=== PATIENT | male | born 1950 | race Caucasian/White ===

== ENCOUNTER → 2019-07-08 11:10 | Outpatient (BNVA) | payer MEDICARE, BC, SELFPAY | PROVIDERS: Family Provider Nurse Practitioner Family; PCP Family Medicine; Visit Provider Family Medicine | DX: I10 Essential (primary) hypertension (principal); E78.5 Hyperlipidemia, unspecified; Z12.5 Encounter for screening for malignant neoplasm of prostate; E78.2 Mixed hyperlipidemia | CPT/HCPCS: 80053; 80061; 85025; G0103 ==

== ENCOUNTER → 2020-01-05 08:57 | Outpatient (BNVA) | payer MEDICARE, BC, SELFPAY | PROVIDERS: Family Provider Nurse Practitioner Family; PCP Family Medicine; Visit Provider Family Medicine | DX: E11.9 Type 2 diabetes mellitus without complications (principal); I10 Essential (primary) hypertension; E78.2 Mixed hyperlipidemia | CPT/HCPCS: 80053; 80061; 83036; 85025 ==

== ENCOUNTER → 2020-06-29 11:31 | Outpatient (BNVA) | payer MEDICARE, BC, SELFPAY | PROVIDERS: Family Provider Nurse Practitioner Family; PCP Family Medicine; Visit Provider Family Medicine | DX: R60.9 Edema, unspecified (principal); I10 Essential (primary) hypertension; E11.9 Type 2 diabetes mellitus without complications; E78.2 Mixed hyperlipidemia | CPT/HCPCS: 80053; 80061; 83036; 84443; 85025 ==

== ENCOUNTER → 2020-12-29 11:15 | Outpatient (BNVA) | payer MEDICARE, BC, SELFPAY | PROVIDERS: Family Provider Nurse Practitioner Family; PCP Family Medicine; Visit Provider Family Medicine | DX: E11.9 Type 2 diabetes mellitus without complications (principal); I10 Essential (primary) hypertension; E78.2 Mixed hyperlipidemia; R60.9 Edema, unspecified | CPT/HCPCS: 80053; 80061; 83036; 84443 ==

== ENCOUNTER → 2021-01-11 10:14 | Outpatient (BNVA) | payer MEDICARE, BC, SELFPAY | PROVIDERS: Family Provider Nurse Practitioner Family; PCP Family Medicine; Visit Provider Family Medicine | DX: R79.89 Other specified abnormal findings of blood chemistry (principal) | CPT/HCPCS: 84439; 84443; 84481 ==

== ENCOUNTER → 2021-06-23 12:13 | Outpatient (BNVA) | payer MEDICARE, BC, SELFPAY | PROVIDERS: Family Provider Nurse Practitioner Family; PCP Family Medicine; Visit Provider Family Medicine | DX: E78.2 Mixed hyperlipidemia (principal); I10 Essential (primary) hypertension; E11.9 Type 2 diabetes mellitus without complications; R53.83 Other fatigue; M79.10 Myalgia, unspecified site; Z12.5 Encounter for screening for malignant neoplasm of prostate; R06.02 Shortness of breath; R60.9 Edema, unspecified | CPT/HCPCS: 71046; 80053; 80061; 82306; 82607; 83036; 83880; 84403; 84443; 85025; G0103 ==

== ENCOUNTER → 2021-07-10 17:22 | Outpatient (BNVA) | payer MEDICARE, BC, SELFPAY | PROVIDERS: Family Provider Nurse Practitioner Family; PCP Family Medicine; Visit Provider Family Medicine | DX: R60.9 Edema, unspecified (principal); R06.02 Shortness of breath; I10 Essential (primary) hypertension | CPT/HCPCS: 80048 ==

== ENCOUNTER 2021-07-14 13:14 | Outpatient (CLI) | payer MEDICARE, BC, SELFPAY ==
--- NOTE | 2021-07-14 13:30 | USCV_ITS ---
David Paredes Age: 71 Gender: M : 1950 Exam Date: 07/14/2021 13:33 Ordering Phys: Yelena Lopez MD Technologist: Gretchen Guadarrama Exam Location: [facility] [place] Indication: SHORTNESS OF BREATH BP: 142 / 69 HR: 59 Rhythm: Sinus Technical Quality: Adequate MEASUREMENTS (Male / Female) Normal Values 2D ECHO LV Diastolic Diameter PLAX 6.0 cm 4.2 - 5.9 / 3.9 - 5.3 cm LV Systolic Diameter PLAX 3.6 cm LV Chamber Size 3.5 cm IVS Diastolic Thickness 0.9 cm 0.6 - 1.0 / 0.6 - 0.9 cm IVS Systolic Thickness 1.8 cm LVPW Diastolic Thickness 1.4 cm 0.6 - 1.0 / 0.6 - 0.9 cm LVPW Systolic Thickness 1.7 cm RV Chamber Size 2.9 cm LVOT Diameter 2.1 cm LV Ejection Fraction 2D Teich 69.8 % LV Ejection Fraction MOD 2C 66.0 % LV Ejection Fraction 2C AL 66.3 % LA Diameter 4.3 cm LA Width 3.3 cm LA Height 3.7 cm RA Width 2.7 cm RA Height 4.1 cm Aorta at Sinotubular Diameter 2.6 cm IVC Diameter 2.1 cm M-MODE Aortic Annulus Diameter 3.6 cm LA Ao Ratio MM 1.3 MV E Point Septal Separation 0.8 cm DOPPLER AV Peak Velocity 140.0 cm/s LVOT Peak Velocity 95.0 cm/s AV Area Cont Eq vti 2.0 cm squared AV Area Cont Eq pk 2.3 cm squared MV Area PHT 3.9 cm squared Mitral E to A Ratio 0.9 MV E' Velocity 40.5 cm/s Mitral E to MV E' Ratio 8.0 Mitral E to LV E' Lateral Ratio 10.9 Mitral E to LV E' Septal Ratio 6.3 TR Peak Velocity 289.6 cm/s TR Peak Gradient 33.5 mmHg TR Mean Velocity 237.0 cm/s TR Mean Gradient 23.7 mmHg TR Velocity Time Integral 102.7 cm TV Peak E Velocity 63.0 cm/s Right Atrial Pressure 3.0 mmHg Pulmonary Artery Systolic Pressu 36.5 mmHg PV Peak Velocity 75.0 cm/s RV Acceleration Time 0.1 s RV Ejection Time 0.3 s RV AcT/ET 0.3 FINDINGS Left Ventricle Normal left ventricular size and systolic function, EF 60 %. No regional wall motion abnormalities. Grade I/IV diastolic dysfunction (abnormal relaxation filling pattern), normal to mildly elevated filling pressures. Right Ventricle The right ventricle is normal in size and function. Right Atrium The right atrium is normal in size. Left Atrium The left atrium is normal in size. Mitral Valve Thickened mitral valve. Mild mitral annular calcification. Trace mitral valve regurgitation. Aortic Valve Thickened aortic valve. Tricuspid Valve No gross abnormalities. Pulmonic Valve No gross abnormalities noted Pericardium Normal pericardium without effusion. Aorta Normal ascending aorta dimension. IVC The inferior vena cava pulmonary and hepatic veins appear normal. CONCLUSIONS Normal left ventricular size and systolic function, EF 60 %. No regional wall motion abnormalities. Type I diastolic dysfunction. Thickened mitral valve. Mild mitral annular calcification. Trace mitral valve regurgitation. There is no pericardial effusion. There are no intracardiac masses. No similar previous studies are available for comparison Dr Tommy Renteria MD [facility] (Electronically Signed) Final Date: 14 Jul 2021 17:14 S
== END 2021-07-14 13:15 | disposition home or self-care (01) ==
LOC: RAD 13:17
PROVIDERS: Family Provider Nurse Practitioner Family; PCP Family Medicine; Visit Provider Family Medicine
DX: R06.02 Shortness of breath (principal)
CPT/HCPCS: 93306

== ENCOUNTER 2021-09-26 07:52 | Outpatient (CLI) | payer MEDICARE, BC, SELFPAY ==
--- NOTE | 2021-09-26 13:29 | PFTS_ITS ---
Date of Study:09/26/21 Date of Dictation: MECHANICS: Forced vital capacity (FVC) is normal. Forced expiratory volume in one second (FEV1) is normal. FEV1/FVC is normal. FLOW VOLUME LOOP: Normal. LUNG VOLUMES: Not measured DIFFUSING CAPACITY FOR CARBON MONOXIDE: Not measured. INTERPRETATION: The prebronchodilator spirometry is normal. No postbronchodilator spirometry was obtained. MTDD
== END 2021-09-26 07:53 | disposition home or self-care (01) ==
PROVIDERS: PCP Family Medicine; Visit Provider Family Medicine
DX: R06.02 Shortness of breath (principal)
CPT/HCPCS: 94010

== ENCOUNTER 2021-11-20 18:43 | Inpatient (IN) | payer MEDICARE, BC, SELFPAY ==
[2021-11-20] VITALS (9 sets, daily range): BP systolic 122–159; BP diastolic 46–67; PULSE 75–85; RESP 16–18; TEMP 36.7–37.2; O2SAT 94–97; BMI 28.5
--- NOTE | 2021-11-20 19:24 | ED_ITS ---
HPI - General Adult General: Chief complaint: General Medical Stated complaint: PCP sent for blood transfusion Time Seen by Provider: 11/20/21 19:15 History of Present Illness: Patient is a 71-year-old male with history hypertension chronically on 81 mg of aspirin presenting to the emergency room with concerns of dark stool for the last 2 weeks in the setting of lightheadedness, shortness of breath and low hemoglobin. Patient went to see his primary care doctor earlier today and was found to have a hemoglobin of 7. Patient was then told to come to the emergency room for concerns of melena. Patient tells me he has had black stool for the last 2 weeks. Patient denies any anticoagulation, liver history or midepigastric abdominal pain. Patient denies any hemoptysis, hematemesis or hematuria. Patient denies any hematochezia. Patient has no other focal complaints at this time. Patient is compliant with 81 mg of aspirin daily. Patient tells me that his stool is improving for the last 2 days has not seen any dark stool. Onset:2 weeks ago Duration:2 weeks Location:home Severity:moderate Associated symptoms: Deny chest pain, dyspnea, nausea, rash, palpitations or vomiting Review of Systems Const: Denies: fever(s) or chills Eyes: Denies: change in vision ENMT: Denies: mouth pain Card: Denies: chest pain or palpitations Resp: Denies: dyspnea or non-productive cough GI: Reports: other (+dark stool); Denies: abdominal pain, nausea, vomiting or diarrhea : Denies: dysuria Musc: Denies: extremity pain Skin/Breast: Denies: rash or new lesions Neuro: Denies: weakness in extremities Psych: Reports: other (Normal mood) Lul/Lymph: Denies: easy bruising PFS ED PFSH: Medical History Hyperlipidemia Hypertension Social History Smoking and tobacco status: never smoked Second hand smoke exposure: No Alcohol intake: never Adopted: No Caregiver/support person: Yes (spouse) Lives independently: Yes Household members: spouse Marital status: Current occupational status: retired History of recent travel: No Current gender identity: Male Special gurpreet needs: No Physical Exam Const: COMMON NORMALS: alert HENMT: COMMON NORMALS: atraumatic HEAD & SCALP: atraumatic MOUTH: moist mucous membranes not abnormal Eye: COMMON NORMALS: EOMs intact bilaterally and conjunctivae normal CONJUNCTIVA: Yes conjunctivae normal Neck/C-Spine: COMMON NORMALS: full ROM and supple Resp: COMMON NORMALS: normal respiratory effort and clear to auscultation bilaterally AUSCULTATION: clear to auscultation bilaterally Cardio: COMMON NORMALS: regular rate RATE: regular rate GI: COMMON NORMALS: Soft to palpation and non-tender PALPATION: Yes Soft to palpation OTHER: No focal TTP. NO guarding rebound, guarding, rigidity. No CVA tenderness to per cussion. Neg Miles/Neg McBurney's point tenderness, no suprabupic tenderness to palpation. RECTAL: hemoocult positive brown stool Extremity: COMMON NORMALS: full ROM Neuro: SENSORIUM/ORIENTATION: Yes alert MOTOR EXAM: No Abnormal motor strength present and Other motor observations present (no focal motor deficits) Psych: COMMON NORMALS: speech normal SPEECH: Yes normal speech MOOD & AFFECT: Yes euthymic mood Course Vital Signs: Vital signs: Vital Signs Temperature 98.1 F 11/20/21 22:40 Pulse Rate 75 11/20/21 22:40 Respiratory Rate 18 11/20/21 22:40 Blood Pressure 140/60 11/20/21 22:40 Pulse Oximetry 96 11/20/21 20:34 Oxygen Delivery Me thod 11/20/21 18:50 MDM - General Adult Medical Decision Making Patient is a 71-year-old male with history hypertension chronically on 81 mg of aspirin presenting to the emergency room with concerns of dark stool for the last 2 weeks in the setting of lightheadedness, shortness of breath and low hemoglobin. On physical exam, patient is no focal abdominal tenderness palpation. She is hemodynamically stable. Patient has Hemoccult positive brown stool. Patient is noted to have a hemoglobin of 6.7 today. Patient has been transfused 2 units of blood. Patient received IV Protonix. At the present time, patient continues to be hemodynamically stable. Suspect the patient has had a GI bleed. Case discussed with Dr. Mckeon who will take patient for EGD tomorrow. NPO at midnight Disposition: admission Lab Data : 11/20/21 19:20 11/20/21 19:20 Laboratory Results WBC 12.6 10^3/uL (4.0-10.0) H 11/20/21 19:20 RBC 2.62 10^6/uL (4.1-5.3) L 11/20/21 19:20 Hgb 6.7 g/dL (11.7-16.6) L 11/20/21 19:20 Hct 21.9 % (42.0-52.0) L 11/20/21 19:20 MCV 83.6 fl (80-94) 11/20/21 19:20 MCH 25.6 pg (28.0-34.0) L 11/20/21 19:20 MCHC 30.6 g/dL (30.0-36.0) 11/20/21 19:20 RDW 15.2 % (12.1-15.1) H 11/20/21 19:20 Plt Count 486 10^3/cmm (130-400) H 11/20/21 19:20 MPV 9.9 fL (7.4-10.4) 11/20/21 19:20 Neut % (Auto) 76.7 % 11/20/21 19:20 Lymph % (Auto) 9.3 % 11/20/21 19:20 Haralson % (Auto) 9.1 % 11/20/21 19:20 Eos % (Auto) 4.0 % 11/20/21 19:20 Baso % (Auto) 0.6 % 11/20/21 19:20 Neut # (Auto) 9.67 10^3/uL (1.8-7.7) H 11/20/21 19:20 Lymph # (Auto) 1.2 10^3/uL (0.8-4.8) 11/20/21 19:20 Haralson # (Auto) 1.1 10^3/uL (0.2-0.9) H 11/20/21 19:20 Eos # (Auto) 0.5 10^3/uL (0.0-0.8) 11/20/21 19:20 Baso # (Auto) 0.1 10^3/uL (0.0-0.1) 11/20/21 19:20 Nucleated RBC % (auto) 0 % 11/20/21 19:20 Nucleated RBCs # 0.0 /100WBC 11/20/21 19:20 PT 16.60 SECONDS (12.1-14.9) H 11/20/21 19:20 INR 1.31 (0.8-1.2) H 11/20/21 19:20 Sodium 130 mmol/L (136-145) L 11/20/21 19:20 Potassium 4.2 mmol/L (3.5-5.1) 11/20/21 19:20 Chloride 96 mmol/L (98-107) L 11/20/21 19:20 Carbon Dioxide 24 mmol/L (22-29) 11/20/21 19:20 Anion Gap 14.2 (5-19) 11/20/21 19:20 BUN 13 mg/dL (8-23) 11/20/21 19:20 Creatinine 0.7 mg/dL (0.7-1.2) 11/20/21 19:20 GFR Calculation Not Reportable 11/20/21 19:20 Glucose 152 mg/dL (65-115) H 11/20/21 19:20 Calculated Osmolality 273 mOsm/kg (285-295) L 11/20/21 19:20 Calcium 8.1 mg/dL (8.5-10.5) L 11/20/21 19:20 Total Bilirubin 0.4 mg/dL (0.15-1.2) 11/20/21 19:20 AST 20 U/L (0-40) 11/20/21 19:20 ALT 28 U/L (0-41) 11/20/21 19:20 Alkaline Phosphatase 206 U/L (40-130) H 11/20/21 19:20 Total Protein 6.9 g/dL (6.6-8.7) 11/20/21 19:20 Albumin 2.6 g/dL (3.5-5.2) L 11/20/21 19:20 Globulin 4.3 g/dL (1.3-4.6) 11/20/21 19:20 Blood Type A Negative 11/20/21 20:27 Rho(D) Type Negative 11/20/21 20:27 Antibody Screen Negative 11/20/21 20:27 Crossmatch See Detail 11/20/21 20:27 Discharge Plan Discharge Patient Disposition: Admitted As Inpatient Clinical Impression: Anemia, Melena, Acute GI bleeding Condition: Stable Discharge Diet: Advance as tolerated Discharge Activity: Increase activity as tolerated Coding Level of Care Code ED Polisher And Buffer for Chg Fwd Exam Comprehensive
[2021-11-20 19:30] LABS: Basophils # 0.1 10^3/uL (0.0-0.1); Basophils % 0.6 %; Eosinophils # 0.5 10^3/uL (0.0-0.8); Hematocrit 21.9 % (42.0-52.0); Hemoglobin 6.7 g/dL (11.7-16.6); Lymphocytes # 1.2 10^3/uL (0.8-4.8); Lymphocytes % 9.3 %; Mean Corpuscular HGB Conc 30.6 g/dL (30.0-36.0); Mean Corpuscular Hemoglobin 25.6 pg (28.0-34.0); Mean Corpuscular Volume 83.6 fl (80-94); Mean Platelet Volume 9.9 fL (7.4-10.4); Monocytes # 1.1 10^3/uL (0.2-0.9); Monocytes % 9.1 %; Neutrophils # 9.67 10^3/uL (1.8-7.7); Neutrophils % 76.7 %; Nucleated Red Blood Cells % 0 %; Platelet Count 486 10^3/cmm (130-400); Red Blood Count 2.62 10^6/uL (4.1-5.3); Red Cell Distribution Width 15.2 % (12.1-15.1); White Blood Count 12.6 10^3/uL (4.0-10.0)
[2021-11-20 19:43] LABS: INR 1.31 (0.8-1.2)
[2021-11-20 19:52] LABS: Alanine Aminotransferase 28 U/L (0-41); Albumin Level 2.6 g/dL (3.5-5.2); Alkaline Phosphatase 206 U/L (40-130); Anion Gap 14.2 (5-19); Aspartate Amino Transferase 20 U/L (0-40); Blood Urea Nitrogen 13 mg/dL (8-23); Calcium 8.1 mg/dL (8.5-10.5); Carbon Dioxide 24 mmol/L (22-29); Chloride 96 mmol/L (98-107); Globulin 4.3 g/dL (1.3-4.6); Glucose 152 mg/dL (65-115); Osmolality Calculated 273 mOsm/kg (285-295); Potassium 4.2 mmol/L (3.5-5.1); Sodium 130 mmol/L (136-145); Total Bilirubin 0.4 mg/dL (0.15-1.2); Total Protein 6.9 g/dL (6.6-8.7)
[2021-11-20] MEDS: pantoprazole 40 mg SDV 80 MG IVP (20:26)
[2021-11-20] MEDS: sodium chloride 0.9% 100 mL Bag 50 ML IV (22:10)
--- NOTE | 2021-11-20 23:24 | PM.HP ---
Providers/Chief Complaint Primary Care Provider: Yelena Lopez MD Chief Complaint: PCP sent for blood transfusion History of Present Illness David Paredes is a 71 year old male with past medical history of hypertension came in with chief complaint of ongoing dark stool for the last 2 weeks, accompanied with lightheadedness , shortness of breath. Patient has denied any chest pain, nausea vomiting abdominal pain, fever cough, denies any, hematuria hemoptysis, hematemesis, he is only on aspirin, not on any oral anticoagulation. Patient was seen by his primary care physician today, CBC done at that time revealed hemoglobin of 7, patient was sent to ER for further work-up. Upon arrival in the ER he was worked up for above-mentioned complaint: Pertinent labs: WBC 12.6, H&H 6.7/ 21 , PLT : 486 , serum sodium 130 serum potassium 4.2, BUN serum creatinine: 13/0.7 PT/INR: 16/1.3 Review of Systems General: Reports: 10 or more systems reviewed and unremarkable except in HPI and below Const: Denies: fever(s), chills, body aches, change in appetite or diaphoresis Card: Reports: dyspnea on exertion; Denies: palpitations, edema, swelling of feet/ankles or leg pain with exertion Resp: Reports: dyspnea; Denies: productive cough, wheezing or pain on inspiration GI: Denies: abdominal pain, nausea, vomiting, diarrhea or constipation : Denies: flank pain or difficulty urinating Musc: Denies: back pain, extremity pain or extremity swelling Neuro: Denies: headache(s), difficulty walking or confusion Medications/Allergies Home Medications Medication Instructions Recorded Confirmed Last Taken Type aspirin 81 mg tablet,delayed 81 mg PO DAILY 07/08/19 11/20/21 Unknown History release (Adult Low Dose Aspirin) multivitamin 1 tab PO DAILY 07/08/19 11/20/21 Unknown History omega-3 fatty acids 1,000 mg 1,000 mg PO DAILY 07/08/19 11/20/21 Unknown History capsule (Fish Oil Concentrate) triamcinolone acetonide 0.1 % 1 applic topical BID 14 days #80 03/17/21 11/20/21 Unknown Rx topical cream grams amlodipine 5 mg tablet (Norvasc) 5 mg PO DAILY #90 tabs 06/23/21 11/20/21 Unknown Rx furosemide 40 mg tablet See Rx Instructions .Route 06/23/21 11/20/21 Unknown Rx .COMPLEX #90 tabs metoprolol tartrate 100 mg tablet 100 mg PO DAILY #90 tabs 06/23/21 11/20/21 Unknown Rx potassium chloride 20 mEq 20 meq PO DAILY #90 tabs 06/23/21 11/20/21 Unknown Rx tablet,extended release furosemide 20 mg tablet (Lasix) 20 mg PO DAILY #30 tabs 07/10/21 11/20/21 Unknown Rx lisinopril 20 mg tablet See Rx Instructions .Route 09/12/21 11/20/21 Unknown Rx .COMPLEX #30 tabs atorvastatin 40 mg tablet See Rx Instructions .Route 09/15/21 11/20/21 Unknown Rx .COMPLEX #90 tabs ferrous sulfate 325 mg (65 mg 325 mg PO BID anemia 30 days #60 11/20/21 Unknown Rx iron) tablet tabs pantoprazole 40 mg tablet,delayed 40 mg PO BID anemia 40 days #80 11/20/21 Unknown Rx release (Protonix) tabs Allergies Allergy/AdvReac Type Severity Reaction Status Date / Time No Known Allergies Allergy Verified 11/20/21 16:07 PFSH Acute PFSH: Medical History Hyperlipidemia Hypertension Social History Smoking and tobacco status: never smoked Second hand smoke exposure: No Alcohol intake: never Adopted: No Caregiver/support person: Yes (spouse) Lives independently: Yes Household members: spouse Marital status: Current occupational status: retired History of recent travel: No Current gender identity: Male Special gurpreet needs: No Vitals/I&O/Wt Last Vital Signs Temp 98.1 F 11/20/21 22:40 Pulse 75 11/20/21 22:40 Resp 18 11/20/21 22:40 BP 140/60 11/20/21 22:40 Pulse Ox 96 11/20/21 20:34 O2 Del Method 11/20/21 18:50 11/20/21 11/20/21 11/21/21 14:59 22:59 06:59 Intake Total 0 / 0 Balance 0 / 0 Weight last 48 hrs Weight 87.543 kg Physical Exam Const: COMMON NORMALS: patient oriented x3 Resp: COMMON NORMALS: clear to auscultation bilaterally AUSCULTATION: clear to auscultation bilaterally Cardio: COMMON NORMALS: regular rate, regular rhythm, S1 normal heart sound present, S2 normal heart sound present, No gallops present (Cardio), No murmurs present (Cardio), No rub (Cardio) and Peripheral pulses 2+ throughout RATE: regular rate RHYTHM: regular rhythm HEART SOUNDS: S1 normal heart sound present and S2 normal heart sound present PERIPHERAL PULSES: Peripheral pulses 2+ throughout GI: COMMON NORMALS: Normal to inspection, nondistended, normoactive bowel sounds present, Soft to palpation, non-tender, No hepatosplenomegaly present and no masses AUSCULTATION: Yes normoactive bowel sounds PALPATION: Yes Soft to palpation and Yes No hepatosplenomegaly present RECTAL EXAM: Yes deferred Extremity: COMMON NORMALS: no clubbing, cyanosis or edema and no pedal edema Neuro: COMMON NORMALS: patient oriented x3 Data : 11/21/21 05:15 11/20/21 19:20 A&P Assessment and plan (1) Anemia: (2) Acute GI bleeding: (3) Hypertension: Qualifiers: Hypertension type: essential hypertension Qualified Code(s): I10 - Essential (primary) hypertension Plan 71 year old male with past medical history of hypertension came in with chief complaint of ongoing dark stool for the last 2 weeks, accompanied with lightheadedness , shortness of breath. Patient has denied any chest pain, nausea vomiting abdominal pain, fever cough, denies any, hematuria hemoptysis, hematemesis. Assessment: UGIB Severe Anemia 2/2 UGIB Hypertension Hyponatremia Plan: Monitor H&H N.p.o. Protonix 40 twice daily Current plan is to transfuse 2 Us PRBC Surgery has been consulted by ER for possible EGD CODE STATUS: Full code Attestations Medical Necessity Statement*: Patient is in hospital for management of her GI bleed. Anticipated length of stay greater than 2 midnights Time Spent in Patient Care: Greater than 35 minutes (>than 50% of time spent in counselling and/or direct pt care on unit). Coding Level of Care Code Acute Finishing Range Supervisor for g Fwd Exam Detailed Diagnoses Anemia D64.9 Acute GI bleeding K92.2 Hypertension I10 Hypertension type: essential hypertension
[2021-11-21] VITALS (14 sets, daily range): BP systolic 121–161; BP diastolic 49–75; PULSE 75–106; RESP 16–22; TEMP 36.3–37.2; O2SAT 93–97; BMI 28.5
[2021-11-21] MEDS: sodium chloride 0.9% 1,000 ML 75 ML IV ×2 (02:59→16:26)
[2021-11-21 05:33] LABS: Basophils # 0.1 10^3/uL (0.0-0.1); Basophils % 0.4 %; Eosinophils # 0.5 10^3/uL (0.0-0.8); Eosinophils % 4.6 %; Hematocrit 25.9 % (42.0-52.0); Hemoglobin 8.2 g/dL (11.7-16.6); Lymphocytes % 8.4 %; Mean Corpuscular HGB Conc 31.7 g/dL (30.0-36.0); Mean Corpuscular Hemoglobin 26.5 pg (28.0-34.0); Mean Corpuscular Volume 83.8 fl (80-94); Monocytes # 1.1 10^3/uL (0.2-0.9); Monocytes % 9.9 %; Neutrophils # 8.65 10^3/uL (1.8-7.7); Neutrophils % 76.3 %; Nucleated Red Blood Cells % 0 %; Platelet Count 397 10^3/cmm (130-400); Red Blood Count 3.09 10^6/uL (4.1-5.3); Red Cell Distribution Width 15.3 % (12.1-15.1); White Blood Count 11.3 10^3/uL (4.0-10.0)
[2021-11-21 06:17] LABS: Anion Gap 13.7 (5-19); Blood Urea Nitrogen 12 mg/dL (8-23); Carbon Dioxide 24 mmol/L (22-29); Chloride 96 mmol/L (98-107); Glucose 111 mg/dL (65-115); Osmolality Calculated 270 mOsm/kg (285-295); Potassium 3.7 mmol/L (3.5-5.1); Sodium 130 mmol/L (136-145)
[2021-11-21] MEDS: pantoprazole 40 mg SDV IVP ×2 (11:11→21:35)
--- NOTE | 2021-11-21 11:43 | PM.CONSULT ---
Providers/Reason For Consult Consulting Physician/Specialty*: Dr. Ervin Mckeon, DO/General surgery Reason for Consult*: GI bleed Attending Physician: Victor Hugo Jensen Primary Care Provider: Yelena Lopez MD History of Present Illness History of Present Illness David Paredes is a 71 year old male who presented to his primary care physician's office for weakness and abdominal pain. He was found to have a hemoglobin of 7 and sent to the ER. In the ER he was found to have a hemoglobin below 7 and was transfused. He reports that he has been getting terrible dull burning epigastric abdominal pain that radiates through to his back. Palpation and eating can make the pain worse. Nothing does seem to make the pain better. He denies any nausea or vomiting denies any diarrhea or constipation. He does report that he has been having dark stools. He has never had a colonoscopy. Review of Systems General: Reports: 10 or more systems reviewed and unremarkable except in HPI and below Medications/Allergies Home Medications Medication Instructions Recorded Confirmed Last Taken Type aspirin 81 mg tablet,delayed 81 mg PO DAILY 07/08/19 11/20/21 Unknown History release (Adult Low Dose Aspirin) multivitamin 1 tab PO DAILY 07/08/19 11/20/21 Unknown History omega-3 fatty acids 1,000 mg 1,000 mg PO DAILY 07/08/19 11/20/21 Unknown History capsule (Fish Oil Concentrate) triamcinolone acetonide 0.1 % 1 applic topical BID 14 days #80 03/17/21 11/20/21 Unknown Rx topical cream grams amlodipine 5 mg tablet (Norvasc) 5 mg PO DAILY #90 tabs 06/23/21 11/20/21 Unknown Rx furosemide 40 mg tablet See Rx Instructions .Route 06/23/21 11/20/21 Unknown Rx .COMPLEX #90 tabs metoprolol tartrate 100 mg tablet 100 mg PO DAILY #90 tabs 06/23/21 11/20/21 Unknown Rx potassium chloride 20 mEq 20 meq PO DAILY #90 tabs 06/23/21 11/20/21 Unknown Rx tablet,extended release furosemide 20 mg tablet (Lasix) 20 mg PO DAILY #30 tabs 07/10/21 11/20/21 Unknown Rx lisinopril 20 mg tablet See Rx Instructions .Route 09/12/21 11/20/21 Unknown Rx .COMPLEX #30 tabs atorvastatin 40 mg tablet See Rx Instructions .Route 09/15/21 11/20/21 Unknown Rx .COMPLEX #90 tabs ferrous sulfate 325 mg (65 mg 325 mg PO BID anemia 30 days #60 11/20/21 Unknown Rx iron) tablet tabs pantoprazole 40 mg tablet,delayed 40 mg PO BID anemia 40 days #80 11/20/21 Unknown Rx release (Protonix) tabs Allergies Allergy/AdvReac Type Severity Reaction Status Date / Time No Known Allergies Allergy Verified 11/20/21 16:07 Current Medications Generic Name Dose Route Start Last Admin Trade Name Freq PRN Reason Stop Dose Admin Sodium Chloride 1,000 mls @ 75 mls/hr 11/20/21 23:30 11/21/21 02:59 Sodium Chloride 0.9% IV 75 mls/hr .[id number] NIKOLAY Administration Pantoprazole Sodium 40 mg 11/21/21 09:00 11/21/21 11:11 Pantoprazole 40 Mg Sdv IVP 40 mg BID NIKOLAY Administration PFSH Acute PFSH: Medical History Hyperlipidemia Hypertension Social History Smoking and tobacco status: never smoked Second hand smoke exposure: No Alcohol intake: never Adopted: No Caregiver/support person: Yes (spouse) Lives independently: Yes Household members: spouse Marital status: Current occupational status: retired History of recent travel: No Current gender identity: Male Special gurpreet needs: No Vitals/I&O/Wt Last Vital Signs Temp 97.4 F L 11/21/21 11:28 Pulse 85 11/21/21 11:28 Resp 20 H 11/21/21 11:28 BP 151/75 11/21/21 11:28 Pulse Ox 96 11/21/21 11:28 O2 Del Method 11/21/21 11:28 11/20/21 11/21/21 11/21/21 22:59 06:59 14:59 Intake Total 0 / 0 700 / 700 Balance 0 / 0 700 / 700 Weight last 48 hrs Weight 193 lb Weight 193 lb Physical Exam Narrative: General : Patient is well developed , no acute distress, oriented x3 Head : Normal cephalic, a-traumatic. Ears : Pinnae and external canal are normal. Hearing is normal. Eyes : PERRLA, Sclera and injection are normal. No conjunctival discharge. Nose : Mucous membranes are without erythema. Throat : buccal mucosa is normal, gums are without significant recession or hypertrophy. Lungs : Equal chest rise bilaterally, no use of accessory muscles, trachea is midline. Cor : Rate and rhythm are normal. Abdomen : Soft, ND, NT, no g/r/m Extremities : No edema, no cyanosis or clubbing, dorsalis pedis pulses are present bilaterally, non-tender to palpation of calves. Upper extremities are normal bilaterally. Back : non-tender to palpation, no CVA tenderness. Neuro : CN II - XII intact, Upper and lower extremities have equal and full strength Data : 11/21/21 05:15 11/21/21 05:15 A&P Assessment and plan (1) Acute GI bleeding: (2) Anemia: Plan Bowel prep N.p.o. after midnight EGD Colonoscopy The risks and benefits of the procedure, including bleeding, infection, intestinal perforation requiring surgery, missed lesion, or explained to the patient. He is understanding of the risks and wishes to proceed. Coding Level of Care Code Acute Shell Machine Operator for [facility] Fwd Diagnoses Acute GI bleeding K92.2 Anemia D64.9
--- NOTE | 2021-11-21 12:46 | DCPLANNER ---
manager of patient had message to schedule a follow up appointment for patient with general surgery, Dr. Mckeon. Patient was admitted to hospital, Dr. Mckeon was consulted and seen patient in the hospital.
[2021-11-21] MEDS: peg /e-lyte soln 4,000 mL Btl 4000 ML PO (13:13)
--- NOTE | 2021-11-21 13:55 | PC.CHAP ---
Pastoral Care Encounter/Spiritual Assessment Type of Contact [] Declined splunk architect visit [] Patient/Family/Request visit [] Outpatient visit [] Follow-up visit [] Physician referral [] Code/Alert [x] Routine visit [] Staff referral [] Actively dying [x] Patient sleeping [] Family support [] [] Out of room [] Palliative care [] [] Receiving care in room [] Pre-surgical visit [] Trauma [] Long length of stay [] ICU visit [] Other: Relational/Emotional Strength [] Patient feels connected with others/family/visitors/staff [] Distress [] Loneliness/isolation [] Abandonment Spirituality of Patient [] Person of Carlee [] Attends Rastafari of their Carlee [] Believes in Prayer [] Reads Bible or Pentecostalism materials [] There are Spiritual issues to be addressed Gis Technician Interventions [] Prayer [] Active listening [] Non-anxious presence [] Spiritual/emotional support [] Crisis/trauma care [] Spiritual counseling [] Bereavement support [] Provided bereavement packet [] Provided Bible/devotional materials [] Provided toy/stuffed animal, coloring book to patient or family member [] Provided Communion [] Anointing/Hannah [] Salvation [] Completed spiritual assessment [] Other: Impact on Illness or Injury [] Angry [] Fearful [] Anxious [] Often cries [] Exhaustion [] Unable to work [] Unable to attend catholic [] Unable to walk/stand [] Unable to read [] Unable to drive [] Unable to eat/drink [] Unable to sleep [] Unable to be with family [] Patient intubated [] Other: Summary Time spent with patient
--- NOTE | 2021-11-21 14:02 | P.PN_ITS ---
Subjective Subjective: He states overall is doing okay. He denies abdominal pain, but does have some tenderness with palpation of epigastrium. Reports has been taking quite a bit of NSAIDs, several different kinds, although not over the last week having stopped recently. Used to take ibuprofen, Aleve. Denies ever having had upper endoscopy. Denies history of smoking. He has been taking aspirin 81 mg for a long time, is not entirely sure why, I they have been trying to remember why he was started on it, they feel it was likely prophylactic. Denies any history of known KS, no cardiac stents, no history of CVA. Vitals/I&O/Wt Last Vital Signs Temp 97.4 F L 11/21/21 11:28 Pulse 85 11/21/21 11:28 Resp 20 H 11/21/21 11:28 BP 151/75 11/21/21 11:28 Pulse Ox 96 11/21/21 11:28 O2 Del Method 11/21/21 11:28 11/20/21 11/21/21 11/21/21 22:59 06:59 14:59 Intake Total 0 / 0 700 / 700 Balance 0 / 0 700 / 700 Weight last 48 hrs Weight 87.543 kg Weight 87.543 kg Physical Exam Narrative: Accompanied by his family. Const: COMMON NORMALS: patient oriented x3 and alert GENERAL APPEARANCE: cooperative ORIENTATION/CONSCIOUSNESS: Yes awake HENMT: COMMON NORMALS: oropharynx normal Neck/C-Spine: COMMON NORMALS: no JVD Resp: COMMON NORMALS: normal respiratory effort and clear to auscultation bilaterally AUSCULTATION: clear to auscultation bilaterally Cardio: COMMON NORMALS: no JVD, regular rhythm, S1 normal heart sound present, S2 normal heart sound present and No murmurs present (Cardio) RHYTHM: regular rhythm HEART SOUNDS: S1 normal heart sound present and S2 normal heart sound present GI: COMMON NORMALS: Normal to inspection, nondistended, normoactive bowel sounds present and Soft to palpation PALPATION: Yes Soft to palpation and Yes Tenderness to palpation present (GI) (Epigastrium) Extremity: COMMON NORMALS: no joint enlargement and no pedal edema Neuro: COMMON NORMALS: patient oriented x3 and moves all extremities SENSORIUM/ORIENTATION: Yes alert Skin: COMMON NORMALS: no rashes or lesions noted GENERAL SKIN EXAM: no rashes or lesions noted Data : 11/21/21 05:15 11/21/21 05:15 A&P Assessment and plan (1) Anemia: Acute anemia with GI bleed. Mostly responded to RBC transfusion 2 units, hemoglobin up to 8.2. Overall feeling better. No tachycardia. Epigastric tenderness. Reports heavy NSAID use up until closed about a week ago when he stopped. Does not have history of smoking. Never had an upper or lower endoscopy. Discontinue NSAIDs, discussed with him and his family. Seems aspirin as prophylactic as well, likely can discontinue this to reduce risk of bleeding going forward. Continue PPI. Bowel rest. Plans for endoscopic evaluation with surgery. (2) Acute GI bleeding: As above. (3) Hypertension: Qualifiers: Hypertension type: essential hypertension Qualified Code(s): I10 - Essential (primary) hypertension Plan Alk phos elevation: 206, unclear cause. Does not have right upper quadrant discomfort. T bili normal. Repeat liver parameters. Mild hyponatremia: Repeat sodium. Has been receiving gentle IV hydration while NPO. My leukocytosis 11.3: Suspect may be reactive with acute anemia, but monitor for any signs of infection. Hypertension Hyponatremia Attestations Medical Necessity Statement*: Continue admission for assessment management of GI bleeding, acute anemia. 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
[2021-11-21 16:06] LABS: Hemoglobin 9.4 g/dL (11.7-16.6)
[2021-11-21] MEDS: sucralfate 1 gm Tablet PO ×2 (16:26→21:31)
[2021-11-21 16:35] LABS: Sodium 131 mmol/L (136-145)
[2021-11-22] VITALS (9 sets, daily range): BP systolic 128–166; BP diastolic 59–75; PULSE 72–95; RESP 18–22; TEMP 36.5–37.2; O2SAT 92–98
[2021-11-22] MEDS: sodium chloride 0.9% 1,000 ML 75 ML IV (02:26)
[2021-11-22 02:51] LABS: Basophils # 0.1 10^3/uL (0.0-0.1); Basophils % 0.5 %; Eosinophils # 0.4 10^3/uL (0.0-0.8); Eosinophils % 3.8 %; Hematocrit 24.8 % (42.0-52.0); Hemoglobin 7.9 g/dL (11.7-16.6); Lymphocytes # 1.2 10^3/uL (0.8-4.8); Mean Corpuscular HGB Conc 31.9 g/dL (30.0-36.0); Mean Corpuscular Hemoglobin 26.9 pg (28.0-34.0); Mean Corpuscular Volume 84.4 fl (80-94); Mean Platelet Volume 9.8 fL (7.4-10.4); Monocytes # 1.1 10^3/uL (0.2-0.9); Monocytes % 11.1 %; Nucleated Red Blood Cells % 0 %; Platelet Count 382 10^3/cmm (130-400); Red Blood Count 2.94 10^6/uL (4.1-5.3); Red Cell Distribution Width 15.7 % (12.1-15.1); White Blood Count 9.6 10^3/uL (4.0-10.0)
[2021-11-22 03:19] LABS: Alanine Aminotransferase 22 U/L (0-41); Albumin Level 2.3 g/dL (3.5-5.2); Alkaline Phosphatase 180 U/L (40-130); Anion Gap 13.9 (5-19); Aspartate Amino Transferase 16 U/L (0-40); Blood Urea Nitrogen 9 mg/dL (8-23); Calcium 7.9 mg/dL (8.5-10.5); Carbon Dioxide 24 mmol/L (22-29); Chloride 100 mmol/L (98-107); Globulin 3.7 g/dL (1.3-4.6); Glucose 105 mg/dL (65-115); Osmolality Calculated 277 mOsm/kg (285-295); Potassium 3.9 mmol/L (3.5-5.1); Sodium 134 mmol/L (136-145); Total Bilirubin 0.7 mg/dL (0.15-1.2)
[2021-11-22] MEDS: sucralfate 1 gm Tablet PO (06:04)
[2021-11-22] MEDS: pantoprazole 40 mg SDV IVP (07:54)
--- NOTE | 2021-11-22 11:33 | P.PN_ITS ---
Subjective Subjective: That he is doing okay. No vomiting, no blood in stool, has been tolerating prep. Otherwise no other complaints or changes. Vitals/I&O/Wt Last Vital Signs Temp 98.2 F 11/22/21 07:38 Pulse 95 11/22/21 08:00 Resp 20 H 11/22/21 07:38 BP 145/68 11/22/21 07:38 Pulse Ox 93 11/22/21 08:00 O2 Del Method 11/22/21 08:00 11/21/21 11/22/21 11/22/21 22:59 06:59 14:59 Intake Total 1600 / 1600 750 / 2350 Balance 1600 / 1600 750 / 2350 Weight last 48 hrs Weight 87.543 kg Weight 87.543 kg Physical Exam Narrative: Accompanied by his . Const: COMMON NORMALS: patient oriented x3 and alert GENERAL APPEARANCE: cooperative ORIENTATION/CONSCIOUSNESS: Yes awake HENMT: COMMON NORMALS: oropharynx normal Neck/C-Spine: COMMON NORMALS: no JVD Resp: COMMON NORMALS: normal respiratory effort and clear to auscultation bilaterally AUSCULTATION: clear to auscultation bilaterally Cardio: COMMON NORMALS: no JVD, regular rhythm, S1 normal heart sound present, S2 normal heart sound present and No murmurs present (Cardio) RHYTHM: regular rhythm HEART SOUNDS: S1 normal heart sound present and S2 normal heart sound present GI: COMMON NORMALS: Normal to inspection, nondistended, normoactive bowel sounds present and Soft to palpation PALPATION: Yes Soft to palpation and Yes Tenderness to palpation present (GI) (Epigastrium) Extremity: COMMON NORMALS: no joint enlargement and no pedal edema Neuro: COMMON NORMALS: patient oriented x3 and moves all extremities SENSORIUM/ORIENTATION: Yes alert Skin: COMMON NORMALS: no rashes or lesions noted GENERAL SKIN EXAM: no rashes or lesions noted Data : 11/22/21 02:28 11/22/21 02:28 A&P Assessment and plan (1) Anemia: Completing prep for endoscopic evaluation, going for upper and lower endoscopy today. Discussed with him and his some additional globin declined today 7.9. Possibly some local bruising from prior bleed, possibly some additional slow ongoing bleeding, if present hopefully may be identified on endoscopy, otherwise additionally some delusional effect from IV fluid likely as well, given decrease across all 3 cell lines. Acute anemia with GI bleed. Mostly responded to RBC transfusion 2 units, hemoglobin up to 8.2. Overall feeling better. No tachycardia. Epigastric tenderness. Reports heavy NSAID use up until closed about a week ago when he stopped. Does not have history of smoking. Never had an upper or lower endoscopy. Discontinue NSAIDs, discussed with him and his family. Seems aspirin as prophy lactic as well, likely can discontinue this to reduce risk of bleeding going forward. Continue PPI. (2) Acute GI bleeding: As above. (3) Hypertension: Qualifiers: Hypertension type: essential hypertension Qualified Code(s): I10 - Essential (primary) hypertension Plan Alk phos elevation: 206, unclear cause. Does not have right upper quadrant discomfort. T bili normal. Repeat liver parameters with some improvement in alk phos down to 180. No signs of acute infection or sepsis, add GGT, consider nonemergent follow-up with ultrasonography. Mild hyponatremia: Improving. My leukocytosis: Resolved. Suspect may be reactive with acute anemia, but monitor for any signs of infection. Hypertension Attestations Medical Necessity Statement*: Continue admission for assessment of management of acute anemia, GI bleeding. Coding Level of Care Code Acute [facility] Pipe Plant Super[facility] Diagn[facility] Anemia D64.9 Acute GI bleeding K92.2 Hypertension I10 Hypertension type: essential hypertension
[2021-11-22] MEDS: sodium chloride 0.9% 1,000 ML 30 ML IV (11:35)
--- NOTE | 2021-11-22 12:04 | P.ANESASSM_ITS ---
Pre-Anesthetic Assessment Height/Weight: Height 1.75 m Weight 87.543 kg Temp Pulse Resp BP Pulse Ox O2 Del Method 97.7 F 95 18 153/71 94 11/22/21 11:30 11/22/21 11:30 11/22/21 11:30 11/22/21 11:30 11/22/21 11:30 11/22/21 11:30 Preop Diagnosis: Acute GI bleed Operation Date: 11/22/21 11:45 Proposed Procedures p EGD(Not Applicable) - Ervin Mckeon DO s Colonoscopy(Not Applicable) - Ervin Mckeon DO Familial anesthetic complications: None Was Beta Ivania taken within 24 hours: N/A (Hasn't taken metoprolol since Saturday morning) Was Clonidine taken within 24 hours: N/A Last Intake: 23:00 (11/21/2021) Social No alcohol and No tobacco Exam alert, oriented x 3, clear to auscultation bilaterally and regular rate & rhythm Airway Submandibular: within normal limits Cervical ROM: within normal limits Mallampati: Class II Comments: Comments: Missing History/ROS No significant history except as noted and No significant complaints Pulmonary None reported CV/HEM Anemia and Hypertension None reported Hepatic None reported GI Gastroesophageal Reflux Disease (Controlled with medication) Metabolic Diabetes Mellitus (Borderline) and Hyperlipidemia [facility] None reported Neuropsych None reported Anesthetic Plan ASA status: 2 Anesthesia: Anesthesia Evaluation, General and MAC Risk of > 500 ml blood loss (7ml/kg in children): No Medications/Allergies Home Medications Medication Instructions Recorded Confirmed Last Taken Type aspirin 81 mg tablet,delayed 81 mg PO DAILY 07/08/19 11/22/21 Unknown History release (Adult Low Dose Aspirin) multivitamin 1 tab PO DAILY 07/08/19 11/22/21 Unknown History amlodipine 5 mg tablet (Norvasc) 5 mg PO DAILY #90 tabs 06/23/21 11/22/21 Unknown Rx metoprolol tartrate 100 mg tablet 100 mg PO DAILY #90 tabs 06/23/21 11/22/21 Unknown Rx ferrous sulfate 325 mg (65 mg 325 mg PO BID anemia 30 days #60 11/20/21 Unknown Rx iron) tablet tabs pantoprazole 40 mg tablet,delayed 40 mg PO BID anemia 40 days #80 11/20/21 Unknown Rx release (Protonix) tabs L.acidophil-L.casei-B.bifid-B.longum-FOS 1 cap PO DAILY 11/22/21 11/22/21 Unknown History 2 billion cell-50 mg capsule (Probiotic Blend) atorvastatin 40 mg tablet 40 mg PO DAILY 11/22/21 11/22/21 Unknown History furosemide 20 mg tablet (Lasix) 20 mg PO QAM 11/22/21 11/22/21 Unknown History furosemide 40 mg tablet 40 mg PO QAM 11/22/21 11/22/21 Unknown History lisinopril 20 mg tablet 20 mg PO DAILY 11/22/21 11/22/21 Unknown History omega-3 fatty acids 1,000 mg 1,000 mg PO DAILY 11/22/21 11/22/21 Unknown History capsule potassium chloride 20 mEq 20 meq PO QAM 11/22/21 11/22/21 Unknown History tablet,extended release triamcinolone acetonide 0.1 % 1 applic topical BID PRN Rash 11/22/21 11/22/21 Unknown History topical cream Allergies Allergy/AdvReac Type Severity Reaction Status Date / Time No Known Allergies Allergy Verified 11/22/21 09:45 Current Medications Generic Name Dose Route Start Last Admin Trade Name Freq PRN Reason Stop Dose Admin Sodium Chloride 1,000 mls @ 30 mls/hr 11/22/21 11:30 11/22/21 11:35 Sodium Chloride 0.9% IV 11/23/21 11:29 30 mls/hr .Q24H NIKOLAY Administration Pantoprazole Sodium 40 mg 11/21/21 09:00 11/22/21 07:54 Pantoprazole 40 Mg Sdv IVP 40 mg BID NIKOLAY Administration Sucralfate 1 gm 11/21/21 17:00 11/22/21 11:16 Sucralfate 1 Gm Tablet PO Not Given AC&BEDTIME NIKOLAY PFSH Anesthesia Medical History Hyperlipidemia Hypertension Social History Smoking and tobacco status: never smoked Second hand smoke exposure: No Alcohol intake: never Adopted: No Caregiver/support person: Yes (spouse) Lives independently: Yes Household members: spouse Marital status: Current occupational status: retired History of recent travel: No Current gender identity: Male Special gurpreet needs: No Data Anesthesia : 11/22/21 02:28 11/22/21 02:28 Short CBC 11/20/21 11/21/21 11/21/21 Range/Units 19:20 05:15 15:58 WBC 12.6 H 11.3 H (4.0-10.0) 10^3/uL Hgb 6.7 L 8.2 L 9.4 L (11.7-16.6) g/dL Hct 21.9 L 25.9 L (42.0-52.0) % MCV 83.6 83.8 (80-94) fl Plt Count 486 H 397 (130-400) 10^3/cmm Neut % (Auto) 76.7 76.3 % Neut # (Auto) 9.67 H 8.65 H (1.8-7.7) 10^3/uL 11/22/21 Range/Units 02:28 WBC 9.6 (4.0-10.0) 10^3/uL Hgb 7.9 L (11.7-16.6) g/dL Hct 24.8 L (42.0-52.0) % MCV 84.4 (80-94) fl Plt Count 382 (130-400) 10^3/cmm Neut % (Auto) 72.0 % Neut # (Auto) 6.90 (1.8-7.7) 10^3/uL BMP 11/20/21 11/21/21 11/21/21 19:20 05:15 15:58 Sodium 130 L 130 L 131 L Potassium 4.2 3.7 Chloride 96 L 96 L Carbon Dioxide 24 24 BUN 13 12 Creatinine 0.7 0.6 L Glucose 152 H 111 Calcium 8.1 L 8.0 L 11/22/21 02:28 Sodium 134 L Potassium 3.9 Chloride 100 Carbon Dioxide 24 BUN 9 Creatinine 0.6 L Glucose 105 Calcium 7.9 L Liver Function 11/20/21 11/22/21 Range/Units 19:20 02:28 Total Bilirubin 0.4 0.7 (0.15-1.2) mg/dL AST 20 16 (0-40) U/L ALT 28 22 (0-41) U/L Alkaline Phosphatase 206 H 180 H (40-130) U/L Albumin 2.6 L 2.3 L (3.5-5.2) g/dL Blood Bank 11/20/21 20:27 Blood Type A Negative Rho(D) Type Negative Antibody Screen Negative Coags 11/20/21 19:20 PT 16.60 H INR 1.31 H Cardiac Studies: Echocardiogram 07/14/21
--- NOTE | 2021-11-22 12:32 | W.PM.OPSUD ---
Surgery/Procedure H&P Update DATE OF PROCEDURE: November 22, 2021 DATE H&P PERFORMED: 11/21/21 PREOP DIAGNOSIS: Acute GI bleed PLANNED PROCEDURE: Operation Date: 11/22/21 11:45 Proposed Procedures p EGD(Not Applicable) - DO ronald Romero Colonoscopy(Not Applicable) - Ervni Mckeon DO
[2021-11-22 13:30] LABS: Gamma Glutamyl Transferase 71 U/L (8-61)
--- NOTE | 2021-11-22 13:39 | PM.PN ---
Vitals/I&O/Wt Last Vital Signs Temp 98.1 F 11/22/21 13:35 Pulse 76 11/22/21 13:35 Resp 18 11/22/21 13:35 BP 147/75 11/22/21 13:35 Pulse Ox 98 11/22/21 13:35 O2 Del Method 11/22/21 13:23 11/21/21 11/22/21 11/22/21 22:59 06:59 14:59 Intake Total 1600 / 1600 750 / 2350 Balance 1600 / 1600 750 / 2350 Weight last 48 hrs Weight 193 lb Weight 193 lb Data : 11/22/21 02:28 11/22/21 02:28 A&P Assessment and plan (1) Gastritis: Plan Patient had moderate gastritis with contact bleeding. This is almost certainly the source of his bleeding. It looks like it has significantly improved with IV Protonix. He needs 6 weeks of Protonix twice daily followed by 6 weeks of Protonix daily, along with 4 weeks of sucralfate twice daily. He can have a bland diet and be discharged home from a surgical standpoint. Telehealth follow-up with me in 2 weeks for biopsy results. 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
--- NOTE | 2021-11-22 15:27 | ANE.PACU2 ---
Inpatient post-anesthesia follow up: Airway intact: Yes Vital signs: Temperature 98.1 F Pulse Rate 76 Respiratory Rate 18 Blood Pressure 147/75 Pulse Oximetry 98 Oxygen Delivery Me thod [ Room Air Current Rate & Del hiro] Oxygen Delivery Me thod Room Air Oxygen Flow Rate Fraction of Inspir ed Oxygen Hydration adequate: Yes Nausea and vomiting: No Pain level: 2 Mental status: Baseline
--- NOTE | 2021-11-22 17:21 | PM.DCS ---
Discharge Providers Date of Admission: 11/20/21 23:15 Date of Discharge: November 22, 2021 Attending Provider at Admission: Feliciano Amaro MD Attending Provider at Discharge: Victor Hugo Jensen Primary Care Provider: Yelena Lopez MD Diagnoses at Discharge Discharge Diagnosis (1) Gastritis: Status: Acute Reason for Visit Reason for Visit: PCP sent for blood transfusion Hospital Course Hospital Course Pleasant 71-year-old gentleman was admitted after presenting with complaint of ongoing dark stools over the previous 2 weeks, with lightheadedness, shortness of breath, and presentation with finding of acute blood loss anemia, hemoglobin down to 6.7, with suspected GI bleeding. Has never had endoscopic evaluation. He received 2 units RBC transfusion on presentation, hemoglobin increased up to 8.2. Remained relatively steady, this morning 7.9. Most maintain on PPI IV twice daily, bowel rest, gentle IV hydration. At home he stated he has been taking NSAIDs quite a bit, including ibuprofen up until the week preceding the admission. He is also on 81 mg aspirin, from what he and his family could remember is likely prophylactic, denies any history of cardiovascular disease. Today he underwent additional assessment with upper and lower endoscopy with finding of moderate gastritis with contact bleeding, improving with IV Protonix. On colonoscopy noted polyps, diverticulosis, hemorrhoids. He was cleared for discharge with outpatient follow-up with 6 weeks of Protonix twice daily, followed by 6 weeks Protonix daily, along with 4 weeks of sucralfate twice daily. [place] diet. Telehealth follow-up with surgery in 2 weeks. He is asked to discontinue NSAIDs, aspirin at this time, as well as hold fish oil. Please revisit with him regarding these medications. Mild alk phos elevation noted during hospitalization, up to 206, with decreased today to 108. No right upper quadrant pain or tenderness. Other liver parameters normal. GGT with elevation of 71. Please follow-up regarding alkaline phosphatase elevation. Please follow-up hypertension, continue to optimize cardiovascular risk factors, other chronic problems. Physical Exam Narrative: Refer to physical exam from earlier today. Discharge Data Studies Completed and Pending Pending at discharge Category Date Time Status Complete Blood Count w/Auto AM LABS Lab 11/23/21 04:00 Ordered Comprehensive Metabolic Panel AM LABS Lab 11/23/21 04:00 Ordered Comprehensive Metabolic Panel AM LABS Lab 11/24/21 04:00 Ordered Pathology: Surgical [PTH] Routine Pth 11/22/21 13:25 Received Laboratory Results WBC 9.6 10^3/uL (4.0-10.0) 11/22/21 02: RBC 2.94 10^6/uL (4.1-5.3) L 11/22/21 02:28 Hgb 7.9 g/dL (11.7-16.6) L 11/22/21 02: Hct 24.8 % (42.0-52.0) L 11/22/21 02: MCV 84.4 fl (80-94) 11/22/21 02: MCH 26.9 pg (28.0-34.0) L 11/22/21 02: MCHC 31.9 g/dL (30.0-36.0) 11/22/21 02: RDW 15.7 % (12.1-15.1) H 11/22/21 02:28 Plt Count 382 10^3/cmm (130-400) 11/22/21 02: MPV 9.8 fL (7.4-10.4) 11/22/21 02:28 Neut % (Auto) 72.0 % 11/22/21 02: Lymph % (Auto) 12.0 % 11/22/21 02: [place] % (Auto) 11.1 % 11/22/21 02: Eos % (Auto) 3.8 % 11/22/21 02: Baso % (Auto) 0.5 % 11/22/21 02: Neut # (Auto) 6.90 10^3/uL (1.8-7.7) 11/22/21 02: Lymph # (Auto) 1.2 10^3/uL (0.8-4.8) 11/22/21 02: [place] # (Auto) 1.1 10^3/uL (0.2-0.9) H 11/22/21 02: Eos # (Auto) 0.4 10^3/uL (0.0-0.8) 11/22/21 02: Baso # (Auto) 0.1 10^3/uL (0.0-0.1) 11/22/21 02:28 Nucleated RBC % (auto) 0 % 11/22/21 02:28 Nucleated RBCs # 0.0 /100WBC 11/22/21 02:28 PT 16.60 SECONDS (12.1-14.9) H 11/20/21 19:20 INR 1.31 (0.8-1.2) H 11/20/21 19:20 Sodium 134 mmol/L (136-145) L 11/22/21 02:28 Potassium 3.9 mmol/L (3.5-5.1) 11/22/21 02:28 Chloride 100 mmol/L (98-107) 11/22/21 02:28 Carbon Dioxide 24 mmol/L (22-29) 11/22/21 02:28 Anion Gap 13.9 (5-19) 11/22/21 02:28 BUN 9 mg/dL (8-23) 11/22/21 02:28 Creatinine 0.6 mg/dL (0.7-1.2) L 11/22/21 02:28 GFR Calculation Not Reportable 11/22/21 02:28 Glucose 105 mg/dL (65-115) 11/22/21 02:28 Calculated Osmolality 277 mOsm/kg (285-295) L 11/22/21 02:28 Calcium 7.9 mg/dL (8.5-10.5) L 11/22/21 02:28 Total Bilirubin 0.7 mg/dL (0.15-1.2) 11/22/21 02:28 GGT 71 U/L (8-61) H 11/22/21 02:28 AST 16 U/L (0-40) 11/22/21 02:28 ALT 22 U/L (0-41) 11/22/21 02:28 Alkaline Phosphatase 180 U/L (40-130) H 11/22/21 02:28 Total Protein 6.0 g/dL (6.6-8.7) L 11/22/21 02:28 Albumin 2.3 g/dL (3.5-5.2) L 11/22/21 02:28 Globulin 3.7 g/dL (1.3-4.6) 11/22/21 02:28 Blood Type A Negative 11/20/21 20:27 Rho(D) Type Negative 11/20/21 20:27 Antibody Screen Negative 11/20/21 20:27 Crossmatch See Detail 11/20/21 20:27 Vitals Last Vital Signs Temp 98.3 F 11/22/21 16:00 Pulse 79 11/22/21 16:00 Resp 20 H 11/22/21 16:00 BP 166/72 11/22/21 16:00 Pulse Ox 96 11/22/21 16:00 O2 Del Method 11/22/21 16:00 Discharge Plan Discharge Patient Disposition: Home Condition: Stable Prescriptions: New Protonix 40 mg tablet,delayed release (DR/EC) 40 mg PO BID 40 Days Qty: 80 0RF ferrous sulfate 325 mg (65 mg iron) tablet 325 mg PO BID 30 Days Qty: 60 0RF pantoprazole 40 mg tablet,delayed release (DR/EC) See Rx Instructions .ROUTE .COMPLEX Qty: 126 0RF Rx Instructions: BID for 6 weeks, then Daily for 6 weeks sucralfate 1 gram tablet 1 g PO BID 28 Days Qty: 56 0RF Continued multivitamin Tablet 1 tab PO DAILY amlodipine [Norvasc] 5 mg tablet 5 mg PO DAILY Qty: 90 1RF metoprolol tartrate 100 mg tablet 100 mg PO DAILY Qty: 90 1RF Probiotic Blend 2 billion cell-50 mg Capsule 1 cap PO DAILY Rx Instructions: give with meal/snack furosemide 40 mg tablet 40 mg PO QAM atorvastatin 40 mg tablet 40 mg PO DAILY lisinopril 20 mg tablet 20 mg PO DAILY Lasix 20 mg tablet 20 mg PO QAM Rx Instructions: Take with 40mg lasix in am. potassium chloride 20 mEq tablet extended release 20 meq PO QAM Discontinued aspirin [Adult Low Dose Aspirin] 81 mg tablet,delayed release (DR/EC) 81 mg PO DAILY omega-3 fatty acids [Fish Oil Concentrate] 1,000 mg Capsule 1,000 mg PO DAILY triamcinolone acetonide 0.1 % cream 1 applic topical BID PRN (Reason: Rash) Rx Instructions: do not apply on face or genitals Discharge Orders: Discharge Order (Routine); Ordered 11/22/21 Ordered By: Victor Hugo Jensen Referrals: Ervin Mckeon DO [Physician] - 2 weeks (Please call tomorrow 11/23/21 to schedule a follow up appointment w/. ) Yelena Lopez MD [Primary Care Provider] - 4-7 days (Please call tomorrow 11/23/21 to schedule follow up appointment. ) Discharge Diet: As Directed and Cardiac Discharge Activity: Increase activity as tolerated Patient Instructions: [place] Diet - Adult, Sucralfate (By mouth), Pantoprazole (By mouth), Gastritis (GEN), Diverticulosis (GEN), Anemia (ED), GI Discharge Instructions, Opioid Safety Activity Restrictions/Additional Instructions: Please follow-up with your primary doctor in office in 4 to 7 days, please have primary doctor recheck your blood count to reassess anemia. Please do not take any NSAIDs like ibuprofen, Alieve or other. Please stop taking aspirin. Hold off on fish oil as well until resumed by your primary doctor. Discuss with your doctor regarding these findings and changes. Follow-up with Dr. Mckeon for reassessment and regarding biopsy results. For now continue bland diet until he can discuss again at follow-up with Dr. Mckeon. Discussed with her primary doctor also regarding finding of diverticulosis. Hemorrhoids. Maintain good intake of fruits and vegetables and fiber. Avoid constipation. Monitor your blood pressures twice daily, write down values, bring the list to your appointment for review by your primary doctor. Continue optimization of cardiovascular risk factors. Discussed with your primary doctor follow-up regarding mild elevation of alkaline phosphatase and GGT. Please have your primary doctor reassess your alkaline phosphatase and GGT at next visit. Discharge Attestations Time Spent in Discharge Care*: greater than 30 min Quality Metrics Clinical Quality Measures [ No reported AMI, CVA or VTE this stay] Coding Level of Care Code Acute Chg FW DC note Diagnoses Gastritis K29.70
--- NOTE | 2021-11-22 19:39 | PC.NURSE ---
Discharge Note Patient discharged to home via car accompanied by spouse. Discharge instructions reviewed with patient and/or sales utility representative. Mobile pharmacy medications and/or prescriptions provided. Belongings/home medications returned.
== END 2021-11-22 19:41 | disposition home or self-care (01) | DRG 378 ==
LOC: ER 23:16 → MEDSURG 23:47
PROVIDERS: Emergency Medicine; Surgery; Admitting Provider Internal Medicine; Emergency Provider Emergency Medicine; PCP Family Medicine; Visit Provider Internal Medicine
PROC: 0DJ08ZZ Inspection of Upper Intestinal Tract, Via Natural or Artificial Opening Endoscopic (ICD-10-PCS; CPT 43235; principal; 2021-11-22 11:45)
PROC: 0DJD8ZZ Inspection of Lower Intestinal Tract, Via Natural or Artificial Opening Endoscopic (ICD-10-PCS; CPT 45378; 2021-11-22 11:45)
DX: K29.51 Unspecified chronic gastritis with bleeding (principal); D62 Acute posthemorrhagic anemia; E87.1 Hypo-osmolality and hyponatremia; I10 Essential (primary) hypertension; E78.5 Hyperlipidemia, unspecified; K57.30 Diverticulosis of large intestine without perforation or abscess without bleeding; K62.1 Rectal polyp; K64.8 Other hemorrhoids
CPT/HCPCS: 36415; 36430; 43239; 45385; 80048; 80053; 82977; 84295; 85018; 85025; 85610; 86850; 86900; 86920; 88305; 88342; 94760; 96374; 99285; C9113; J2704; J7030; P9016

== ENCOUNTER → 2021-11-27 14:44 | Outpatient (BNVA) | payer MEDICARE, BC, SELFPAY | PROVIDERS: PCP Family Medicine; Visit Provider Family Medicine | DX: D64.9 Anemia, unspecified (principal); K29.70 Gastritis, unspecified, without bleeding; E78.2 Mixed hyperlipidemia | CPT/HCPCS: 80053; 82977; 85025 ==

== ENCOUNTER → 2021-12-05 08:26 | Outpatient (BNVA) | payer MEDICARE, BC, SELFPAY | PROVIDERS: PCP Family Medicine; Visit Provider Surgery | DX: Z09 Encounter for follow-up examination after completed treatment for conditions other than malignant neoplasm (principal); K29.70 Gastritis, unspecified, without bleeding; D64.9 Anemia, unspecified; D36.9 Benign neoplasm, unspecified site; K64.8 Other hemorrhoids | CPT/HCPCS: 99212 ==

== ENCOUNTER → 2021-12-11 10:14 | Outpatient (BNVA) | payer MEDICARE, BC, SELFPAY | PROVIDERS: PCP Family Medicine; Visit Provider Family Medicine | DX: D64.9 Anemia, unspecified (principal); E78.2 Mixed hyperlipidemia; E11.9 Type 2 diabetes mellitus without complications; I10 Essential (primary) hypertension; D72.829 Elevated white blood cell count, unspecified | CPT/HCPCS: 80053; 80061; 83036; 84443; 85025; 86850; 86900 ==

== ENCOUNTER → 2021-12-12 09:51 | Day surgery (SDC) | payer MEDICARE, BC, SELFPAY ==
[2021-12-12 10:25] VITALS: BP 125/58; PULSE 80; RESP 18; TEMP 36.6; O2SAT 96
[2021-12-12] MEDS: sodium chloride 0.9% (100 ml) 100 ML 10 ML (10:30)
--- NOTE | 2021-12-12 10:30 | PC.NURSE ---
Yelena Lopez's office notified of critical sodium 115. Orders received to infuse 1L NS over one hour following blood transfusion.
[2021-12-12 10:34] VITALS: BP 117/51; PULSE 76; RESP 18; TEMP 36.4; O2SAT 97
[2021-12-12 10:52] VITALS: BP 114/53; PULSE 71; RESP 18; TEMP 36.8; O2SAT 97
[2021-12-12 11:07] VITALS: BP 116/55; PULSE 72; RESP 18; TEMP 36.8; O2SAT 97
[2021-12-12 12:07] VITALS: BP 121/55; PULSE 72; RESP 18; TEMP 36.3; O2SAT 98
[2021-12-12] MEDS: sodium chloride 0.9% 1,000 ML 999 ML IV (12:17)
== END ==
PROVIDERS: PCP Family Medicine; Visit Provider Family Medicine
DX: E87.1 Hypo-osmolality and hyponatremia (principal)
CPT/HCPCS: 36415; 36430; 86850; 86900; 86920; 87493; 87506; 96360; J7030; P9040

== ENCOUNTER 2021-12-14 13:01 | Inpatient (IN) | payer MEDICARE, BC, SELFPAY ==
[2021-12-14] VITALS (13 sets, daily range): BP systolic 100–122; BP diastolic 52–67; PULSE 67–90; RESP 15–19; TEMP 36.2–36.6; O2SAT 93–97; BMI 28.3; BMI 27.9
[2021-12-14 14:26] LABS: Add Urine Microscopic? NO; Charge for UA Resulting for Rev
[2021-12-14 14:30] LABS: Bilirubin Urine Neg (Negative); Blood Urine Neg (Negative); Glucose Urine UA Norm (Normal); Ketones Urine Negative (Negative); Leukocyte Esterase Urine Negative (Negative); Nitrate Urine Negative (Negative); Protein Urine Neg (Negative); Specific Gravity, Urine 1.015 (1.005-1.030); Urine Appearance Clear (CLEAR); Urine Color Yellow (Yellow); Urobilinogen Urine 1 mg/dL (Negative); pH Urine 5 (5-7)
[2021-12-14 14:34] LABS: Basophils # 0.1 10^3/uL (0.0-0.1); Basophils % 0.3 %; Eosinophils # 0.2 10^3/uL (0.0-0.8); Eosinophils % 0.8 %; Hematocrit 25.3 % (42.0-52.0); Hemoglobin 8.2 g/dL (11.7-16.6); Lymphocytes # 0.7 10^3/uL (0.8-4.8); Lymphocytes % 2.7 %; Mean Corpuscular HGB Conc 32.4 g/dL (30.0-36.0); Mean Corpuscular Hemoglobin 25.9 pg (28.0-34.0); Mean Corpuscular Volume 80.1 fl (80-94); Mean Platelet Volume 9.8 fL (7.4-10.4); Monocytes # 1.2 10^3/uL (0.2-0.9); Monocytes % 4.9 %; Neutrophils # 21.78 10^3/uL (1.8-7.7); Nucleated Red Blood Cells % 0 %; Platelet Count 401 10^3/cmm (130-400); Red Blood Count 3.16 10^6/uL (4.1-5.3); Red Cell Distribution Width 17.4 % (12.1-15.1); White Blood Count 24.2 10^3/uL (4.0-10.0)
--- NOTE | 2021-12-14 14:34 | ED_ITS ---
HPI - Weakness General: Chief complaint: Weakness Stated complaint: weak Time Seen by Provider: 12/14/21 13:44 Source: patient Mode of arrival: ambulatory History of Present Illness: 71-year-old male presents emergency room planing of generalized weakness. He has not felt well for the last several weeks he was hospitalized in late October about 4 weeks ago after upper GI bleed. He had EGD and colonoscopy showed gastric irritation was thought to be from chronic use of NSAIDs and he was discharged home on Protonix. He states he did have black tarry stools today seem to be actually decreasing and after he started iron he started getting darker stools again this time they are more solid. Has not had any xin hematemesis hematochezia. He denies chest pain or shortness of breath. He had an elevated white count yesterday and tells me he was started on ciprofloxacin but it does not recall a specific infection that they were targeting when antibiotics were started. His last office visit looks like it was November 27. Complaint: generalized weakness Onset (ago): minute(s) Duration: constant Location: generalized Severity: moderate Relieving factors: none Exacerbating factors: none Associated symptoms: Reports melena (On iron); Denies chest pain, chills, confusion, decreased appetite, diaphoresis, dysuria, easy bruising, fever(s), headache(s), myalgias, nausea, rash, short of breath, syncope or vomiting Review of Systems Const: Reports: fatigue and malaise; Denies: fever(s), chills or diaphoresis ENMT: Denies: throat pain, ear or mastoid pain, nasal discharge or nasal rishi estion Card: Denies: chest pain, palpitations, irregular heart rhythm, edema or syncope Resp: Denies: dyspnea, productive cough or non-productive cough GI: Reports: constipation and melena (On iron); Denies: abdominal pain, nausea, vomiting, hematemesis, coffee ground emesis, diarrhea, bloating or GI cramping : Denies: flank pain, difficulty urinating, dysuria, urinary frequency or urinary urgency Skin/Breast: Denies: rash or pruritus Neuro: Denies: headache(s) or confusion Psych: Denies: anxiety or depression Lul/Lymph: Denies: easy bruising PFS ED PFSH: Medical History Hyperlipidemia Hypertension Surgical History History of colonoscopy Social History Smoking and tobacco status: never smoked Second hand smoke exposure: No Alcohol intake: never Adopted: No Caregiver/support person: Yes (spouse) Lives independently: Yes Household members: spouse Marital status: Current occupational status: retired History of recent travel: No Current gender identity: Male Special gurpreet needs: No Physical Exam Const: COMMON NORMALS: no acute distress GENERAL APPEARANCE: cooperative and comfortable ORIENTATION/CONSCIOUSNESS: Yes awake, Yes oriented to person, Yes oriented to place and Yes oriented to time Neck/C-Spine: COMMON NORMALS: full ROM, no lymphadenopathy, supple and no JVD Lymph: LYMPHATIC: no lymphadenopathy noted and no lymphedema noted Resp: COMMON NORMALS: normal respiratory effort, No retractions, No use of accessory muscles and clear to auscultation bilaterally AUSCULTATION: clear to auscultation bilaterally Cardio: COMMON NORMALS: no JVD, regular rate, regular rhythm and No murmurs present (Cardio) RATE: regular rate RHYTHM: regular rhythm GI: COMMON NORMALS: Soft to palpation and No hepatosplenomegaly present AUSCULTATION: Yes normoactive bowel sounds PALPATION: Yes Soft to palpation, No Tenderness to palpation present (GI), No Guarding due to palpation present (GI) and Yes No hepatosplenomegaly present Extremity: COMMON NORMALS: normal to inspection, capillary refill normal, no clubbing, cyanosis or edema, no calf tenderness and no pedal edema Neuro: SENSORIUM/ORIENTATION: Yes oriented to person, Yes oriented to place and Yes oriented to time Skin: COMMON NORMALS: no rashes or lesions noted GENERAL SKIN EXAM: no rashes or lesions noted Course Vital Signs: Vital signs: Vital Signs Temperature 98.7 F 12/15/21 09:39 Pulse Rate 95 12/15/21 09:56 Respiratory Rate 20 H 12/15/21 09:56 Blood Pressure 130/66 12/15/21 09:56 Pulse Oximetry 94 12/15/21 09:56 Oxygen Delivery Me thod 12/15/21 08:00 MDM - Weakness Medical Decision Making Hyponatremia with elevated alk phos.. Patient also has acute encephalopathy. Moderate dehydration and significant anemia. Initial cultures done. Discussed with hospitalist orders written Medical Records I reviewed the patient's medical records. Lab Data I reviewed the patient's lab results. : 12/15/21 00:24 12/15/21 07:09 Radiology Impressions Chest X-Ray 12/14/21 14:44 IMPRESSION: No acute findings. Chest/Abdomen/Pelvis CT 12/14/21 17:09 IMPRESSION: 1. Negative for pulmonary embolus. 2. Cardiomegaly. 3. Coronary artery atherosclerotic calcifications. IMPRESSION: 1. 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 Additionally some air in fluid soft tissue density is seen within the mass suggesting communication with the duodenum or necrosis. The mass also contacts the superior mesenteric artery. 2. 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 Bilateral renal cysts. 4. Diverticulosis without diverticulitis. 5. Nodular enlargement of the prostate gland. 6. Multifocal low-density lesions measuring 4.2 cm concerning for metastatic disease. 7. Cholelithiasis with mild gallbladder wall thickening, consider further evaluation with ultrasound. 8. Small hiatal hernia. 9. Small amount of ascites in the upper abdomen. 10. Perinephric edema bilaterally likely related to chronic renal insufficiency. COMMENTS: Consistent with the [employer]'s Incidental Findings Committee white paper (J Am Antonio Radiol 2018): Any incidental renal lesion less than 1 cm or classified as too small to characterize, or any incidental cystic renal lesion characterized as simple-appearing, is likely benign. No follow-up imaging is recommended for these lesions per consensus recommendations based on imaging criteria. Laboratory Results WBC 24.2 10^3/uL (4.0-10.0) H 12/14/21 14:14 RBC 3.16 10^6/uL (4.1-5.3) L 12/14/21 14:14 Hgb 8.2 g/dL (11.7-16.6) L 12/14/21 14:14 Hct 25.3 % (42.0-52.0) L 12/14/21 14:14 MCV 80.1 fl (80-94) 12/14/21 14:14 MCH 25.9 pg (28.0-34.0) L 12/14/21 14:14 MCHC 32.4 g/dL (30.0-36.0) 12/14/21 14:14 RDW 17.4 % (12.1-15.1) H 12/14/21 14:14 Plt Count 401 10^3/cmm (130-400) H 12/14/21 14:14 MPV 9.8 fL (7.4-10.4) 12/14/21 14:14 Neut % (Auto) 90.0 % 12/14/21 14:14 Lymph % (Auto) 2.7 % 12/14/21 14:14 [place] % (Auto) 4.9 % 12/14/21 14:14 Eos % (Auto) 0.8 % 12/14/21 14:14 Baso % (Auto) 0.3 % 12/14/21 14:14 Reticulocyte % (Auto) 2.2 % (0.5-2.0) H 12/14/21 14:14 Neut # (Auto) 21.78 10^3/uL (1.8-7.7) H 12/14/21 14:14 Lymph # (Auto) 0.7 10^3/uL (0.8-4.8) L 12/14/21 14:14 [place] # (Auto) 1.2 10^3/uL (0.2-0.9) H 12/14/21 14:14 Eos # (Auto) 0.2 10^3/uL (0.0-0.8) 12/14/21 14:14 Baso # (Auto) 0.1 10^3/uL (0.0-0.1) 12/14/21 14:14 Nucleated RBC % (auto) 0 % 12/14/21 14:14 Nucleated RBCs # 0.0 /100WBC 12/14/21 14:14 ESR 34 mm/hr (0-10) H 12/14/21 14:14 Haptoglobin 369.0 mg/L (30-200) H 12/14/21 14:14 Sodium 115 mmol/L (136-145) L* 12/14/21 14:14 Sodium 117 mmol/L (136-145) L* 12/14/21 14:14 Sodium Cancelled 12/14/21 14:14 Potassium 5.5 mmol/L (3.5-5.1) H 12/14/21 14:14 Chloride 84 mmol/L (98-107) L 12/14/21 14:14 Carbon Dioxide 20 mmol/L (22-29) L 12/14/21 14:14 Anion Gap 16.5 (5-19) 12/14/21 14:14 BUN 12 mg/dL (8-23) 12/14/21 14:14 Creatinine 0.6 mg/dL (0.7-1.2) L 12/14/21 14:14 GFR Calculation Not Reportable 12/14/21 14:14 Glucose 141 mg/dL (65-115) H 12/14/21 14:14 Calculated Osmolality 242 mOsm/kg (285-295) L 12/14/21 14:14 Lactic Acid 3.5 mmol/L (0.5-2.2) H 12/14/21 14:14 Lactic Acid (Sepsis) 2.4 mmol/L (0.5-2.2) H 12/14/21 17:10 Calcium 7.8 mg/dL (8.5-10.5) L 12/14/21 14:14 Ferritin 1183 ng/mL (30-400) H 12/14/21 14:14 Total Bilirubin 0.7 mg/dL (0.15-1.2) 12/14/21 14:14 AST 35 U/L (0-40) 12/14/21 14:14 ALT 36 U/L (0-41) 12/14/21 14:14 Alkaline Phosphatase 618 U/L (40-130) H 12/14/21 14:14 Lactate Dehydrogenase 264 U/L (135-225) H 12/14/21 14:14 Creatine Kinase Cancelled 12/14/21 14:14 C-Reactive Protein 103.9 mg/L (0.0-4.9) H 12/14/21 14:14 Total Protein 6.0 g/dL (6.6-8.7) L 12/14/21 14:14 Albumin 2.0 g/dL (3.5-5.2) L 12/14/21 14:14 Globulin 4.0 g/dL (1.3-4.6) 12/14/21 14:14 Lipase 44 U/L (13-60) 12/14/21 14:14 Vitamin B12 > 2000 pg/mL (232-1245) H 12/14/21 14:14 Folate 8.5 ng/mL (4.5-32.2) 12/14/21 14:14 Procalcitonin 0.37 ng/mL (0-0.5) 12/14/21 14:14 TSH 8.30 uIU/mL (0.27-4.20) H 12/14/21 14:14 Free T4 Cancelled 12/14/21 14:14 Free T3 Cancelled 12/14/21 14:14 Urine Color Yellow (Yellow) 12/14/21 14:21 Urine Appearance Clear (CLEAR) 12/14/21 14:21 Urine pH 5 (5-7) 12/14/21 14:21 Ur Specific [place] 1.015 (1.005-1.030) 12/14/21 14:21 Urine Protein Neg (Negative) 12/14/21 14:21 Urine Glucose (UA) Norm (Normal) 12/14/21 14:21 Urine Ketones Negative (Negative) 12/14/21 14:21 Urine Blood Neg (Negative) 12/14/21 14:21 Urine Nitrate Negative (Negative) 12/14/21 14:21 Urine Bilirubin Neg (Negative) 12/14/21 14:21 Urine Urobilinogen 1 mg/dL (Negative) H 12/14/21 14:21 Ur Leukocyte Esterase Negative (Negative) 12/14/21 14:21 Blood Type A Negative 12/14/21 14:14 Rho(D) Type Negative 12/14/21 14:14 Antibody Screen Negative 12/14/21 14:14 Crossmatch See Detail 12/14/21 14:14 Discharge Plan Discharge Patient Disposition: Admitted As Inpatient Admit Provider: Juan Antonio Strong Clinical Impression: Acute hyponatremia, Leukocytosis, Alkaline phosphatase elevation Condition: Stable Coding Level of Care Code ED Cardiovascular Disease Specialist for Chg Fwd Exam Comprehensive
--- NOTE | 2021-12-14 14:44 | XRR_ITS ---
PROCEDURE INFORMATION: Exam: XR Chest Exam date and time: 12/14/2021 2:52 PM Age: 71 years old Clinical indication: Dyspnea TECHNIQUE: Imaging protocol: Radiologic exam of the chest. Views: 1 view. COMPARISON: CR XR chest 2V* [id number] 06/23/2021 12:16 PM FINDINGS: Lungs: Unremarkable. No consolidation. Pleural spaces: Unremarkable. No pleural effusion. No pneumothorax. Heart/Mediastinum: Unremarkable. No cardiomegaly. Bones/joints: Unremarkable. XR/XR chest 1V portable [id number] IMPRESSION: No acute findings.
[2021-12-14 14:53] LABS: Alanine Aminotransferase 36 U/L (0-41); Alkaline Phosphatase 618 U/L (40-130); Aspartate Amino Transferase 35 U/L (0-40); Blood Urea Nitrogen 12 mg/dL (8-23); Calcium 7.8 mg/dL (8.5-10.5); Carbon Dioxide 20 mmol/L (22-29); Chloride 84 mmol/L (98-107); Glucose 141 mg/dL (65-115); Osmolality Calculated 242 mOsm/kg (285-295); Total Bilirubin 0.7 mg/dL (0.15-1.2)
[2021-12-14 15:02] LABS: Anion Gap 16.5 (5-19); Potassium 5.5 mmol/L (3.5-5.1); Sodium 115 mmol/L (136-145)
[2021-12-14 15:25] LABS: Lactic Sepsis W/Reflex 3.5 mmol/L (0.5-2.2)
[2021-12-14 16:57] LABS: Reflex Lactate Order REFLEX LACTIC ORDERD
--- NOTE | 2021-12-14 17:09 | CTR_ITS ---
PROCEDURE INFORMATION: Exam: CTA Chest With Contrast Exam date and time: 12/14/2021 6:41 PM Age: 71 years old Clinical indication: Abdominal tenderness and other: Weight loss recent hospitalization for gastritis; Cough; Additional info: Weight loss, abdominal pain, anemia TECHNIQUE: Imaging protocol: Computed tomographic angiography of the chest with contrast. 3D rendering (Not supervised by radiologist): MIP and/or 3D reconstructed images were created by the technologist. Radiation optimization: All CT scans at this facility use at least one of these dose optimization techniques: automated exposure control; mA and/or kV adjustment per patient size (includes targeted exams where dose is matched to clinical indication); or iterative reconstruction. Contrast material: OMNIPAQUE 350; Contrast volume: 95 ml; Contrast route: INTRAVENOUS (IV); COMPARISON: CR XR chest 1V portable [id number] 12/14/2021 2:52 PM RADIATION DOSE METRICS: Total DLP (mGy-cm): 984.98 FINDINGS: Pulmonary arteries: Normal. No pulmonary emboli. Aorta: Unremarkable. No aortic aneurysm. No aortic dissection. Lungs: Unremarkable. No consolidation. No masses. Pleural spaces: Unremarkable. No pneumothorax. No pleural effusion. Heart: Cardiomegaly. Coronary artery atherosclerotic calcifications. Lymph nodes: Unremarkable. No enlarged lymph nodes. Bones/joints: Unremarkable. No acute fracture. Soft tissues: Unremarkable. PROCEDURE INFORMATION: Exam: CT Abdomen And Pelvis With Contrast Exam date and time: 12/14/2021 6:41 PM Age: 71 years old Clinical indication: Abdominal tenderness and other: Weight loss recent hospitalization for gastritis; Cough; Additional info: Weight loss, abdominal pain, anemia TECHNIQUE: Imaging protocol: Computed tomography of the abdomen and pelvis with contrast. Radiation optimization: All CT scans at this facility use at least one of these dose optimization techniques: automated exposure control; mA and/or kV adjustment per patient size (includes targeted exams where dose is matched to clinical indication); or iterative reconstruction. Contrast material: OMNIPAQUE 350; Contrast volume: 95 ml; Contrast route: INTRAVENOUS (IV); COMPARISON: CR XR chest 1V portable [id number] 12/14/2021 2:52 PM RADIATION DOSE METRICS: Total DLP (mGy-cm): 984.98 FINDINGS: Liver: Normal. No mass. Gallbladder and bile ducts: Cholelithiasis with mild gallbladder wall thickening, consider further evaluation with ultrasound. Pancreas: Normal. No ductal dilation. Spleen: Normal. No splenomegaly. Adrenal glands: Normal. No mass. Kidneys and ureters: Perinephric edema bilaterally likely related to chronic renal insufficiency. Bilateral renal cysts. Stomach and bowel: Diverticulosis without diverticulitis. Small hiatal hernia. Appendix: No evidence of appendicitis. Intraperitoneal space: Unremarkable. No free air. Small amount of ascites in the upper abdomen. Vasculature: See Lymph nodes finding. 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 Additionally some air in fluid soft tissue density is seen within the mass suggesting communication with the duodenum or necrosis. The mass also contacts the superior mesenteric artery. 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 Reproductive: Nodular enlargement of the prostate gland. Bones/joints: Unremarkable. No acute fracture. Soft tissues: Unremarkable. Other findings: Multifocal low-density lesions measuring 4.2 cm concerning for metastatic disease. CT/CT angio chest w abd pel w con IMPRESSION: 1. Negative for pulmonary embolus. 2. Cardiomegaly. 3. Coronary artery atherosclerotic calcifications. IMPRESSION: 1. 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 Additionally some air in fluid soft tissue density is seen within the mass suggesting communication with the duodenum or necrosis. The mass also contacts the superior mesenteric artery. 2. 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 Bilateral renal cysts. 4. Diverticulosis without diverticulitis. 5. Nodular enlargement of the prostate gland. 6. Multifocal low-density lesions measuring 4.2 cm concerning for metastatic disease. 7. Cholelithiasis with mild gallbladder wall thickening, consider further evaluation with ultrasound. 8. Small hiatal hernia. 9. Small amount of ascites in the upper abdomen. 10. Perinephric edema bilaterally likely related to chronic renal insufficiency. COMMENTS: Consistent with the [employer]'s Incidental Findings Committee white paper (J Am Antonio Radiol 2018): Any incidental renal lesion less than 1 cm or classified as too small to characterize, or any incidental cystic renal lesion characterized as simple-appearing, is likely benign. No follow-up imaging is recommended for these lesions per consensus recommendations based on imaging criteria.
--- NOTE | 2021-12-14 17:23 | P.HP_ITS ---
Providers/Chief Complaint Primary Care Provider: Yelena Lopez MD Chief Complaint: weak History of Present Illness David Paredes is a 71 year old male with a recent history of anemia status post 2 units PRBC during last hospitalization, recently in the last week received 1 unit PRBC, status post EGD and colonoscopy, showed polyps, diverticulosis, hemorrhoids. EGD showed moderate gastritis. He was also found to have limited alk phos, elevated GGT, he was sent home, he continued to complain of weakness, his tells me that he had generalized weakness, malaise, sits in his chair all day, no headache, no blurry vision, no nausea, vomiting, does have a poor appetite, has had over 30 pound weight loss, denies any bloody or black stools, he was given 1 unit PRBC, about 1 week ago. Patient has also been complaining of midepigastric abdominal pain, no found history of cancers, no history of leukemia, history of lymphoma. tells me that in the last few days he has been increasingly confused, he has been out of it Review of Systems Const: Denies: fever(s) Card: Denies: chest pain Resp: Denies: dyspnea GI: Reports: abdominal pain; Denies: nausea or vomiting : Denies: flank pain Musc: Denies: back pain Medications/Allergies Home Medications Medication Instructions Recorded Confirmed Last Taken Type multivitamin 1 tab PO DAILY 07/08/19 12/14/21 12/14/21 History amlodipine 5 mg tablet (Norvasc) 5 mg PO DAILY #90 tabs 06/23/21 12/14/21 12/14/21 Rx metoprolol tartrate 100 mg tablet 100 mg PO DAILY #90 tabs 06/23/21 12/14/21 12/14/21 Rx L.acidophil-L.casei-B.bifid-B.longum-FOS 1 cap PO DAILY 11/22/21 12/14/21 12/14/21 History 2 billion cell-50 mg capsule (Probiotic Blend) furosemide 20 mg tablet (Lasix) 20 mg PO QAM 11/22/21 12/14/21 12/14/21 History furosemide 40 mg tablet 40 mg PO QAM 11/22/21 12/14/21 12/14/21 History lisinopril 20 mg tablet 20 mg PO DAILY 11/22/21 12/14/21 12/14/21 History pantoprazole 40 mg tablet,delayed See Rx Instructions .Route 11/22/21 12/14/21 12/14/21 Rx release .COMPLEX #126 tabs potassium chloride 20 mEq 20 meq PO QAM 11/22/21 12/14/21 12/14/21 History tablet,extended release sucralfate 1 gram tablet 1 g PO BID 4 weeks #56 tabs 11/22/21 12/14/21 12/14/21 Rx ciprofloxacin HCl 500 mg tablet 500 mg PO BID #14 tabs 12/11/21 12/14/21 Unknown Rx atorvastatin 40 mg tablet 40 mg PO DAILY #90 tabs 12/13/21 12/14/21 12/14/21 Rx ferrous sulfate 142 mg (45 mg 142 mg PO DAILY 12/14/21 12/14/21 12/14/21 History iron) tablet,extended release (Slow Fe) simethicone 125 mg capsule (Gas-X 125 mg PO DAILY PRN 12/14/21 12/14/21 Unknown History Extra Strength) Gastrointestinal Spasms Or Cramping Allergies Allergy/AdvReac Type Severity Reaction Status Date / Time No Known Allergies Allergy Verified 12/14/21 13:57 PFSH Acute PFSH: Medical History (Updated 12/14/21 @ 17:38 by Juan Antonio Strong MD) Hyperlipidemia Hypertension Surgical History (Updated 12/14/21 @ 17:28 by Juan Antonio Strong MD) History of colonoscopy Social History Smoking and tobacco status: never smoked Second hand smoke exposure: No Alcohol intake: never Adopted: No Caregiver/support person: Yes (spouse) Lives independently: Yes Household members: spouse Marital status: Current occupational status: retired History of recent travel: No Current gender identity: Male Special gurpreet needs: No Vitals/I&O/Wt Last Vital Signs Temp 97.1 F L 12/14/21 13:23 Pulse 90 12/14/21 16:30 Resp 18 12/14/21 16:30 BP 111/57 12/14/21 16:30 Pulse Ox 93 12/14/21 16:30 O2 Del Method 12/14/21 14:25 Weight last 48 hrs Weight 87.09 kg Physical Exam Const: COMMON NORMALS: no acute distress EXAM LIMITATIONS: altered mental status ORIENTATION/CONSCIOUSNESS: Yes awake and Yes oriented to person; not oriented to place HENMT: COMMON NORMALS: normocephalic HEAD & SCALP: normocephalic Eye: COMMON NORMALS: Equal, round and reactive pupils present Neck/C-Spine: COMMON NORMALS: no JVD Resp: COMMON NORMALS: normal respiratory effort, No retractions, No use of accessory muscles and clear to auscultation bilaterally AUSCULTATION: clear to auscultation bilaterally Cardio: COMMON NORMALS: no JVD, regular rate, regular rhythm, S1 normal heart sound present and S2 normal heart sound present RATE: regular rate RHYTHM: regular rhythm HEART SOUNDS: S1 normal heart sound present and S2 normal heart sound present GI: COMMON NORMALS: Normal to inspection, nondistended, normoactive bowel sounds present, Soft to palpation, non-tender, No hepatosplenomegaly present, no masses and no bruits PALPATION: Yes Soft to palpation and Yes No hepatosple nomegaly present Extremity: COMMON NORMALS: capillary refill normal and no pedal edema Neuro: COMMON NORMALS: CN's II-XII intact bilaterally, moves all extremities and no focal motor deficits Psych: COMMON NORMALS: mental status grossly normal Data : 12/14/21 14:14 12/14/21 14:14 Micro: Microbiology 12/14/21 15:37 Blood Culture - Preliminary Blood SPECIMEN COLLECTED 12/14/21 15:51 Blood Culture - Preliminary Blood SPECIMEN COLLECTED A&P Assessment and plan (1) Acute encephalopathy: (2) Acute hyponatremia: (3) History of esophagogastroduodenoscopy (EGD): (4) Leukocytosis: (5) Alkaline phosphatase elevation: (6) Abdominal pain: (7) Diabetes mellitus: Qualifiers: Diabetes mellitus type: type 2 Diabetes mellitus assisted insulin use: without regional intermodal truck driver use Diabetes mellitus complication status: without complication Qualified Code(s): E11.9 - Type 2 diabetes mellitus without complications (8) Hyperlipidemia: Qualifiers: Hyperlipidemia type: mixed hyperlipidemia Qualified Code(s): E78.2 - Mixed hyperlipidemia (9) Hypertension: Qualifiers: Hypertension type: essential hypertension Qualified Code(s): I10 - Essential (primary) hypertension Plan Acute hyponatremia with acute encephalopathy -Patient's serum sodium has been 115 for the last 2 days, his baseline sodium runs between 1 30-1 35 -We see acute changes in his mentation for the last few days, warrants treatment with hypertonic saline -We will admit to ICU -Neurochecks, seizure precautions -Monitor serum sodiums every 2 hours -Start hypertonic saline 15 mL/hr, correct sodium by 4 to 6 mEq - -Monitor for overcorrection -Consult nephrology -Etiology potentially dehydration versus SIADH -Can consider desmopressin -Urine studies ordered -Full code -SCDs for DVT prophylaxis, Lovenox relatively contraindicated due to anemia Anemia -EGD and colonoscopy no active bleeding, denies bloody or black stools -Has received 1 unit PRBC in the last week -Avoid antiplatelet therapy, avoid anticoagulant therapy -Serum iron studies, Hemoccult stool Neutrophilic leukocytosis -Etiology unclear -Urine studies do not indicate UTI, chest x-ray unremarkable for pneumonia -Does have complaint of epigastric and lower abdominal pain, will obtain a lipase, GGT, CT chest abdomen pelvis Lactic acidosis, potentially from dehydration, will monitor Elevated alk phos, bone versus abdominal, CT scan abdomen pelvis as above Weight loss, poor after tired, etiology unclear, work-up as above Type 2 diabetes mellitus, low-dose sliding scale Attestations Medical Necessity Statement*: Patient requires hospitalization, inpatient, greater than 2 midnights Coding Level of Care Code Acute Pocket Stitcher for g Fwd Exam Comprehensive Diagnoses Acute encephalopathy G93.40 Acute hyponatremia E87.1 History of esophagogastroduodenoscopy (EGD) Z98.890 Leukocytosis D72.829 Alkaline phosphatase elevation R74.8 Abdominal pain R10.9 Diabetes mellitus E11.9 Diabetes mellitus type: type 2 Diabetes mellitus assisted insulin use: without regional intermodal truck driver use Diabetes mellitus complication status: without complication Hyperlipidemia E78.2 Hyperlipidemia type: mixed hyperlipidemia Hypertension I10 Hypertension type: essential hypertension
[2021-12-14 17:34] LABS: Erythrocyte Sedimentation Rate 34 mm/hr (0-10)
[2021-12-14 17:37] LABS: Reticulocyte % 2.2 % (0.5-2.0)
[2021-12-14 17:38] LABS: Lactic Acid level (Lactate) 2.4 mmol/L (0.5-2.2)
[2021-12-14 17:53] LABS: LAB Peripheral Smear Sent for Review
[2021-12-14] MEDS: iohexol 350 mg/mL 100 mL Btl IV (17:59)
[2021-12-14 18:09] LABS: Glucose Point of Care 116 mg/dL (70-110)
[2021-12-14] MEDS: pantoprazole 40 mg SDV IVP (18:14)
[2021-12-14 18:16] LABS: Procalcitonin 0.37 ng/mL (0-0.5)
[2021-12-14 18:18] LABS: Folate Level 8.5 ng/mL (4.5-32.2)
[2021-12-14 18:31] LABS: C Reactive Protein 103.9 mg/L (0.0-4.9)
--- NOTE | 2021-12-14 18:44 | P.CONIM_ITS ---
Providers/Reason For Consult Consulting Physician/Specialty*: Mara Lucas DO, telenephrology Reason for Consult*: Hyponatremia Requesting Physician: Juan Antonio Strong MD Attending Physician: Juan Antonio Strong MD Primary Care Provider: Yelena Lopez MD History of Present Illness History of Present Illness David Paredes is a 71 year old male presented to emergency room for evaluation of weakness. He reports minimal food intake for 2 weeks, but has been drinking 7 - 8 glasses water daily and taking furosemide. Received pRBC tranfusion this week and was started on cipro for unspecified infection. Review of Systems Const: Reports: fatigue Card: Denies: chest pain Resp: Denies: dyspnea : Denies: other (no urinary complaints) Medications/Allergies Home Medications Medication Instructions Recorded Confirmed Last Taken Type multivitamin 1 tab PO DAILY 07/08/19 12/14/21 12/14/21 History amlodipine 5 mg tablet (Norvasc) 5 mg PO DAILY #90 tabs 06/23/21 12/14/21 12/14/21 Rx metoprolol tartrate 100 mg tablet 100 mg PO DAILY #90 tabs 06/23/21 12/14/21 12/14/21 Rx L.acidophil-L.casei-B.bifid-B.longum-FOS 1 cap PO DAILY 11/22/21 12/14/21 12/14/21 History 2 billion cell-50 mg capsule (Probiotic Blend) furosemide 20 mg tablet (Lasix) 20 mg PO QAM 11/22/21 12/14/21 12/14/21 History furosemide 40 mg tablet 40 mg PO QAM 11/22/21 12/14/21 12/14/21 History lisinopril 20 mg tablet 20 mg PO DAILY 11/22/21 12/14/21 12/14/21 History pantoprazole 40 mg tablet,delayed See Rx Instructions .Route 11/22/21 12/14/21 12/14/21 Rx release .COMPLEX #126 tabs potassium chloride 20 mEq 20 meq PO QAM 11/22/21 12/14/21 12/14/21 History tablet,extended release sucralfate 1 gram tablet 1 g PO BID 4 weeks #56 tabs 11/22/21 12/14/21 12/14/21 Rx ciprofloxacin HCl 500 mg tablet 500 mg PO BID #14 tabs 12/11/21 12/14/21 Unknown Rx atorvastatin 40 mg tablet 40 mg PO DAILY #90 tabs 12/13/21 12/14/21 12/14/21 Rx ferrous sulfate 142 mg (45 mg 142 mg PO DAILY 12/14/21 12/14/21 12/14/21 History iron) tablet,extended release (Slow Fe) simethicone 125 mg capsule (Gas-X 125 mg PO DAILY PRN 12/14/21 12/14/21 Unknown History Extra Strength) Gastrointestinal Spasms Or Cramping Allergies Allergy/AdvReac Type Severity Reaction Status Date / Time No Known Allergies Allergy Verified 12/14/21 13:57 Current Medications Generic Name Dose Route Start Last Admin Trade Name Freq PRN Reason Stop Dose Admin Insulin Human Lispro 0 unit 12/14/21 18:01 12/14/21 18:23 Insulin Lispro 100 Unit/1 Ml SUBCUT Not Given TIDWM NIKOLAY Protocol Pantoprazole Sodium 40 mg 12/14/21 17:30 12/14/21 18:14 Pantoprazole 40 Mg Sdv IVP 40 mg Q12H NIKOLAY Administration PFSH Acute PFSH: Medical History Hyperlipidemia Hypertension Surgical History History of colonoscopy Social History Smoking and tobacco status: never smoked Second hand smoke exposure: No Alcohol intake: never Adopted: No Caregiver/support person: Yes (spouse) Lives independently: Yes Household members: spouse Marital status: Current occupational status: retired History of recent travel: No Current gender identity: Male Special gurpreet needs: No Vitals/I&O/Wt Last Vital Signs Temp 97.1 F L 12/14/21 13:23 Pulse 79 12/14/21 17:19 Resp 18 12/14/21 17:19 BP 122/67 12/14/21 17:19 Pulse Ox 97 12/14/21 17:19 O2 Del Method 12/14/21 18:13 Weight last 48 hrs Weight 85.871 kg Weight 87.09 kg Physical Exam Const: COMMON NORMALS: no acute distress and alert Extremity: NARRATIVE EXTREMITY EXAM: 1+ leg edema Neuro: SENSORIUM/ORIENTATION: Yes alert Data : 12/14/21 14:14 12/14/21 14:14 Other Labs: albumin 2 serum Na 115 /, 125 10/ urinalysis neg protein Micro: Microbiology 12/14/21 15:37 Blood Culture - Preliminary Blood SPECIMEN COLLECTED 12/14/21 15:51 Blood Culture - Preliminary Blood SPECIMEN COLLECTED CXR: Radiologist's impression: normal A&P Assessment and plan (1) Hyponatremia: seen via telemedicine with assistance of RN at bedside Plan 1. Hyponatremia. Serum sodium has been 115 mEq/L for at least 3 days. Two weeks ago 125 mEq/L. Mild symptoms. He has edema suggesting hypervolemia, but serum albumin low. BUN/Cr low, on ACEi, good water intake makes volume depletion unlikely. Probable SIADH. 2. Hyperkalemia on second lab draw, slight hemolysis. lisinopril on hold - repeat 3. Metabolic acidosis, elevated lactate level, leukocytosis. Panculture, CT abdomen done, report pending 4. Anemia Recommend: receiving iv 3%NSS, Q2h sodium, discontinue 3%NSS when serum Na > 120. Fluid restrict. Urine osmolality is send out - will take a few days to return. Consult Attestations Medical Necessity Statement: see above Time Spent in Patient Care: 16 - 35 minutes Coding Level of Care Code Acute Social Science Manager for [facility] Diagnoses Hyponatremia E87.1
[2021-12-14 18:49] LABS: Lipase 44 U/L (13-60)
[2021-12-14 18:57] LABS: Ferritin 1183 ng/mL (30-400)
[2021-12-14 18:58] LABS: Vitamin B12 > 2000 pg/mL (232-1245)
[2021-12-14 18:59] LABS: Lactate Dehydrogenase 264 U/L (135-225)
[2021-12-14 19:00] LABS: Sodium 117 mmol/L (136-145)
[2021-12-14 19:40] LABS: Basophils % 0.2 %; Eosinophils # 0.3 10^3/uL (0.0-0.8); Eosinophils % 1.5 %; Hematocrit 24.5 % (42.0-52.0); Hemoglobin 7.8 g/dL (11.7-16.6); Lymphocytes # 0.7 10^3/uL (0.8-4.8); Lymphocytes % 3.5 %; Mean Corpuscular HGB Conc 31.8 g/dL (30.0-36.0); Mean Corpuscular Hemoglobin 25.9 pg (28.0-34.0); Mean Corpuscular Volume 81.4 fl (80-94); Mean Platelet Volume 9.6 fL (7.4-10.4); Monocytes % 5.6 %; Neutrophils # 16.53 10^3/uL (1.8-7.7); Neutrophils % 88.2 %; Nucleated Red Blood Cells % 0 %; Platelet Count 342 10^3/cmm (130-400); Red Blood Count 3.01 10^6/uL (4.1-5.3); Red Cell Distribution Width 17.6 % (12.1-15.1); White Blood Count 18.7 10^3/uL (4.0-10.0)
[2021-12-14] MEDS: sucralfate 1 gm Tablet PO (20:06)
[2021-12-14 20:08] LABS: Anion Gap 15.7 (5-19); Blood Urea Nitrogen 12 mg/dL (8-23); Calcium 7.6 mg/dL (8.5-10.5); Carbon Dioxide 19 mmol/L (22-29); Chloride 86 mmol/L (98-107); Glucose 107 mg/dL (65-115); Osmolality Calculated 242 mOsm/kg (285-295); Potassium 4.7 mmol/L (3.5-5.1)
[2021-12-14 20:11] LABS: Sodium 116 mmol/L (136-145)
[2021-12-14 20:29] LABS: Influenza A by IFA negative (Negative); Influenza B by IFA negative (Negative)
[2021-12-14 21:10] LABS: Potassium, Radom Urine 32 mmol/L; Urine Random Chloride 23 mmol/L
[2021-12-14 21:15] LABS: Urine Random Sodium 12 mmol/L
[2021-12-14 21:50] LABS: Adenovirus Not Detected (NOT DETECT); Chlamydia Pneumoniae Not Detected (NOT DETECT); Coronavirus 229E,HKU1,NL63,OC4 Not Detected (NOT DETECT); Human Metapneumovirus Not Detected (NOT DETECT); Human Rhinovirus/Enterovirus Not Detected (NOT DETECT); Influenza A Not Detected (NOT DETECT); Influenza A H1 Not Detected (NOT DETECT); Influenza A H1-2009 Not Detected (NOT DETECT); Influenza A H3 Not Detected (NOT DETECT); Influenza B Not Detected (NOT DETECT); Mycoplasma Pneumoniae Not Detected (NOT DETECT); Parainfluenza Virus Type 1 Not Detected (NOT DETECT); Parainfluenza Virus Type 2 Not Detected (NOT DETECT); Parainfluenza Virus Type 3 Not Detected (NOT DETECT); Parainfluenza Virus Type 4 Not Detected (NOT DETECT); Respiratory Syncytial Virus A Not Detected (NOT DETECT); Respiratory Syncytial Virus B Not Detected (NOT DETECT); SARS-COV-2 Not Detected (NOT DETECT)
[2021-12-14 22:37] LABS: Eosinophil Urine No Eosinophils Seen; Urine Eosinophil Count 0 (0-0)
[2021-12-14 22:38] LABS: Creatine Phosphokinase 20 U/L (39-308)
[2021-12-14 22:41] LABS: Sodium 117 mmol/L (136-145)
[2021-12-14 22:45] LABS: Free T4 Free Thyroxine 0.83 ng/dL (0.82-1.77); T3 Free 1.4 PG/ML (2.0-4.4)
--- NOTE | 2021-12-14 22:45 | PC.NURSE ---
2242- critical potassium [address] berg, ordered to continue 3% saline until na reaches 120, will continue q2 na lab draw and only call md once na is over 120.
[2021-12-15] VITALS (12 sets, daily range): BP systolic 115–130; BP diastolic 50–66; PULSE 82–97; RESP 16–26; TEMP 36.5–37.1; O2SAT 93–97
[2021-12-15 00:38] LABS: Basophils % 0.2 %; Eosinophils # 0.6 10^3/uL (0.0-0.8); Eosinophils % 3.4 %; Hemoglobin 7.3 g/dL (11.7-16.6); Lymphocytes # 0.8 10^3/uL (0.8-4.8); Lymphocytes % 4.3 %; Mean Corpuscular HGB Conc 31.7 g/dL (30.0-36.0); Mean Corpuscular Hemoglobin 25.5 pg (28.0-34.0); Mean Corpuscular Volume 80.4 fl (80-94); Mean Platelet Volume 9.6 fL (7.4-10.4); Monocytes # 1.1 10^3/uL (0.2-0.9); Monocytes % 5.9 %; Neutrophils % 85.4 %; Nucleated Red Blood Cells % 0 %; Platelet Count 321 10^3/cmm (130-400); Red Blood Count 2.86 10^6/uL (4.1-5.3); Red Cell Distribution Width 17.5 % (12.1-15.1); White Blood Count 18.1 10^3/uL (4.0-10.0)
[2021-12-15 01:03] LABS: Sodium 119 mmol/L (136-145)
[2021-12-15 03:21] LABS: Sodium 120 mmol/L (136-145)
[2021-12-15 04:16] LABS: Alanine Aminotransferase 31 U/L (0-41); Albumin Level 1.8 g/dL (3.5-5.2); Alkaline Phosphatase 514 U/L (40-130); Aspartate Amino Transferase 28 U/L (0-40); Blood Urea Nitrogen 11 mg/dL (8-23); Calcium 7.5 mg/dL (8.5-10.5); Carbon Dioxide 21 mmol/L (22-29); Globulin 3.7 g/dL (1.3-4.6); Glucose 98 mg/dL (65-115); Osmolality Calculated 245 mOsm/kg (285-295); Phosphorus 3.8 mg/dL (2.5-4.5); Total Bilirubin 0.7 mg/dL (0.15-1.2); Total Protein 5.5 g/dL (6.6-8.7)
[2021-12-15 04:50] LABS: Chloride 88 mmol/L (98-107)
[2021-12-15 04:55] LABS: Anion Gap 13.6 (5-19); Potassium 4.6 mmol/L (3.5-5.1); Sodium 118 mmol/L (136-145)
[2021-12-15] MEDS: sucralfate 1 gm Tablet PO (05:55)
[2021-12-15] MEDS: pantoprazole 40 mg SDV IVP (05:55)
--- NOTE | 2021-12-15 06:43 | P.PN_ITS ---
Subjective Subjective: 3% NSS infusion stopped overnight when serum Na was 120 mEq/L Vitals/I&O/Wt Last Vital Signs Temp 97.7 F 12/15/21 05:27 Pulse 86 12/15/21 05:49 Resp 18 12/14/21 17:19 BP 122/67 12/14/21 17:19 Pulse Ox 97 12/14/21 17:19 O2 Del Method 12/15/21 04:00 12/14/21 12/14/21 12/15/21 14:59 22:59 06:59 Intake Total 100 / 100 100 / 200 Output Total 150 / 150 450 / 600 Balance -50 / -50 -350 / -400 Weight last 48 hrs Weight 85.871 kg Weight 87.09 kg Data : 12/15/21 00:24 12/15/21 07:09 Micro: Microbiology 12/14/21 15:37 Blood Culture - Preliminary Blood SPECIMEN COLLECTED 12/14/21 15:51 Blood Culture - Preliminary Blood SPECIMEN COLLECTED CT Abd/Pel: Radiologist's impression: ?7 cm mass seen in the pancreatic uncinate process and head with involvement of the duodenum with some associated enlarged lymph nodes in the upper abdomen measuring 15 mm 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 Additionally some air in fluid soft tissue density is seen within the mass suggesting communication with the duodenum or necrosis. The mass also contacts the superior mesenteric artery.? 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 Hyponatremia. Serum sodium has been 115 mEq/L for at least 3 days. Two weeks ago 125 mEq/L. Mild symptoms. He has edema suggesting hypervolemia, but serum albumin low. BUN/Cr low, on ACEi, good water intake makes volume depletion unlik john. 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 2. Pancreatic mass. Plan to transfer to tertiary care facility 3. Metabolic acidosis, improved. elevated lactate level, leukocytosis. 4. Anemia Recommend: change continuous 3%NSS to intermittent bolus, Q4h sodium Attestations Medical Necessity Statement*: see above Time Spent in Patient Care: 16 - 35 minutes Coding Level of Care Code Acute [employer] Targeting Technician for [facility] Diagnoses Hyponatremia E87.1
[2021-12-15 07:20] LABS: Glucose Point of Care 105 mg/dL (70-110)
[2021-12-15 07:49] LABS: Sodium 118 mmol/L (136-145)
[2021-12-15] MEDS: levothyroxine 25 mcg Tablet PO (08:39)
[2021-12-15] MEDS: piperacillin-tazobactam 3.375 GM in sodium chloride 0.9% (plus) 50 ML IV (09:04)
[2021-12-15] MEDS: sodium chloride 0.9% (100 ml) 100 ML (09:51)
--- NOTE | 2021-12-15 10:00 | PC.NURSE ---
Addendum entered by Ever Sandhu RN 12/15/21 10:03: phone number [phone] Original Note: Report called to JUDD Pa RN. No further questions. [facility] room 25 ([phone])
--- NOTE | 2021-12-15 10:00 | PC.NURSE ---
Assumed care at this time
--- NOTE | 2021-12-15 11:36 | PC.NURSE ---
Dr. Strong gave v.o. to d/c to [place] via flight. family at bedside. patient out of facility at this time with flight request
--- NOTE | 2021-12-15 12:00 | P.TS_ITS ---
Transfer Summary Providers Date of Admission: 12/14/21 17:19 Date of Discharge/Transfer: 12/15/21 Attending Provider at Admission: Juan Antonio Strong MD Attending Provider at Transfer: Juan Antonio Strong MD Primary Care Provider: Yelena Lopez MD Transfer Plans: Anticipated date of transfer: 12/15/21 . Diagnoses at Discharge Discharge Diagnosis (1) Hyponatremia: Status: Acute Reason for Visit Reason for Visit weak Brief History: Critical care time spent over 55 minutes Hospital Course Hospital Course This is a 71-year-old male who presents to [facility] due to weakness, fatigue Patient was admitted to [facility] for weakness, fatigue, likely multifactorial Hyponatremia, likely a mixture of hypovolemic hyponatremia natremia and probable SIADH, serum sodium was 115 on admission, having episodes of acute encephalopathy, managed in ICU, managed with hypertonic saline, serum sodium did reach 120, his mentation significantly improved, just before transfer his serum sodium was 118, his hypertonic saline has been put on hold. We will continue to restrict his free fluids, consider desmopressin, 2 weeks ago his serum sodium was 125 this potentially could be his baseline. Acute encephalopathy likely multifactorial, from hyponatremia, lactic acidosis, dehydration, on transfer was alert oriented x3, following all commands, no focal neurologic deficits, no headache, blurry vision Acute on chronic anemia, required 1 unit PRBC during his hospitalization, no bloody or black stools, likely from pancreatic mass, potential invasion into duodenum, transferred to [facility] Metabolic acidosis, elevated lactic acid, leukocytosis, has received panculture, managed with antibiotic therapy, so far cultures have been unremarkable. Etiology likely dehydration, potentially infectious but on antibiotic therapy Patient was found to have 1. 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 Additionally some air in fluid soft tissue density is seen within the mass suggesting communication with the duodenum or necrosis. The mass also contacts the superior mesenteric artery. 2. 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 Bilateral renal cysts. 4. Diverticulosis without diverticulitis. 5. Nodular enlargement of the prostate gland. 6. Multifocal low-density lesions measuring 4.2 cm concerning for metastatic disease. 7. Cholelithiasis with mild gallbladder wall thickening, consider further evaluation with ultrasound. 8. Small hiatal hernia. 9. Small amount of ascites in the upper abdomen.? 10. Perinephric edema bilaterally likely related to chronic renal insufficiency. -I had a detailed discussion with patient and family at bedside -Findings above are concerning for pancreatic malignancy, with invasion into duodenum, and into biliary tree with potential metastatic lesions -I am also worried given the invasion into duodenum, this could be the source of his anemia -His hyponatremia is likely nausea and vomiting given his pancreatic malignancy, likely SIADH, -He also has a portal vein thrombus, I discussed with our hematology and oncology service, anticoagulation currently carry significant risk given his anemia, will hold off for now -I had a detailed discussion with hematology oncology service, recommend transfer to tertiary level center for further evaluation including EBUS, surgery consideration, oncology evaluation -I had a detailed discussion with patient's family, patient needs EBUS evaluation, surgery evaluation, his oncology evaluation, given the complexity of his care, he deserves a [facility] evaluation -Given invasion into duodenum, he might require also a duodenal stent -In terms of patient's prognosis, prognosis is poor, however he was fairly functional at baseline, thus I think he deserves an extensive evaluation to see what all his options are -He does not have any cardiac disease that is known, no history of lung disease, history of strokes, no other significant medical problems, before all this he was fairly independent, fairly functional -After discussing the risks and benefits of transfer they voiced understanding, all questions answered, agreed to proceed with transfer -Patient has been transferred to [facility] Physical Exam Const: COMMON NORMALS: no acute distress and patient oriented x3 Resp: COMMON NORMALS: normal respiratory effort, No retractions, No use of accessory muscles and clear to auscultation bilaterally AUSCULTATION: clear to auscultation bilaterally Cardio: COMMON NORMALS: regular rate, regular rhythm, S1 normal heart sound present and S2 normal heart sound present RATE: regular rate RHYTHM: regular rhythm HEART SOUNDS: S1 normal heart sound present and S2 normal heart sound present GI: COMMON NORMALS: Normal to inspection, nondistended, normoactive bowel sounds present and non-tender Extremity: COMMON NORMALS: no calf tenderness Neuro: COMMON NORMALS: patient oriented x3 Psych: COMMON NORMALS: mental status grossly normal TS Data Studies Completed and Pending Pending at discharge Category Date Time Status Blood Culture Stat Lab 12/14/21 15:37 Results MRSA by PCR Stat Lab 12/14/21 19:50 Received Osmolality Urine Routine Lab 12/14/21 20:15 Received Urine Culture Stat Lab 12/14/21 20:15 Received Labs from last 24 hours 12/15/21 12/15/21 12/15/21 07:11 07:09 03:40 WBC RBC Hgb Hct MCV MCH MCHC RDW Plt Count MPV Neut % (Auto) Lymph % (Auto) [place] % (Auto) Eos % (Auto) Baso % (Auto) Reticulocyte % (Auto) Neut # (Auto) Lymph # (Auto) [place] # (Auto) Eos # (Auto) Baso # (Auto) Nucleated RBC % (auto) Nucleated RBCs # ESR Haptoglobin Sodium 118 L* 118 L* Potassium 4.6 Chloride 88 L Carbon Dioxide 21 L Anion Gap 13.6 BUN 11 Creatinine 0.6 L GFR Calculation Not Reportable Glucose 98 POC Glucose 105 Calculated Osmolality 245 L Lactic Acid Lactic Acid (Sepsis) Calcium 7.5 L Phosphorus 3.8 Magnesium 2.0 Ferritin Total Bilirubin 0.7 AST 28 ALT 31 Alkaline Phosphatase 514 H Lactate Dehydrogenase Creatine Kinase C-Reactive Protein Total Protein 5.5 L Albumin 1.8 L Globulin 3.7 Lipase Vitamin B12 Folate Procalcitonin TSH Free T4 Free T3 Urine Color Urine Appearance Urine pH Ur Specific [place] Urine Protein Urine Glucose (UA) Urine Ketones Urine Blood Urine Nitrate Urine Bilirubin Urine Urobilinogen Ur Leukocyte Esterase Ur Eosinophil Smear Urine Eosinophils Urine Osmolality Ur Random Sodium Ur Random Potassium Ur Random Chloride Coronavirus 229E (PCR) Influenza Type A Ag Influenza Type B Ag SARS-CoV-2 (PCR) Blood Type Rho(D) Type Antibody Screen Crossmatch 12/15/21 12/15/21 12/15/21 01:57 00:24 00:24 WBC 18.1 H RBC 2.86 L Hgb 7.3 L Hct 23.0 L MCV 80.4 MCH 25.5 L MCHC 31.7 RDW 17.5 H Plt Count 321 MPV 9.6 Neut % (Auto) 85.4 Lymph % (Auto) 4.3 [place] % (Auto) 5.9 Eos % (Auto) 3.4 Baso % (Auto) 0.2 Reticulocyte % (Auto) Neut # (Auto) 15.40 H Lymph # (Auto) 0.8 [place] # (Auto) 1.1 H Eos # (Auto) 0.6 Baso # (Auto) 0.0 Nucleated RBC % (auto) 0 Nucleated RBCs # 0.0 ESR Haptoglobin Sodium 120 L 119 L* Potassium Chloride Carbon Dioxide Anion Gap BUN Creatinine GFR Calculation Glucose POC Glucose Calculated Osmolality Lactic Acid Lactic Acid (Sepsis) Calcium Phosphorus Magnesium Ferritin Total Bilirubin AST ALT Alkaline Phosphatase Lactate Dehydrogenase Creatine Kinase C-Reactive Protein Total Protein Albumin Globulin Lipase Vitamin B12 Folate Procalcitonin TSH Free T4 Free T3 Urine Color Urine Appearance Urine pH Ur Specific [place] Urine Protein Urine Glucose (UA) Urine Ketones Urine Blood Urine Nitrate Urine Bilirubin Urine Urobilinogen Ur Leukocyte Esterase Ur Eosinophil Smear Urine Eosinophils Urine Osmolality Ur Random Sodium Ur Random Potassium Ur Random Chloride Coronavirus 229E (PCR) Influenza Type A Ag Influenza Type B Ag SARS-CoV-2 (PCR) Blood Type Rho(D) Type Antibody Screen Crossmatch 12/14/21 12/14/21 12/14/21 21:53 21:53 21:00 WBC 18.7 H RBC 3.01 L Hgb 7.8 L Hct 24.5 L MCV 81.4 MCH 25.9 L MCHC 31.8 RDW 17.6 H Plt Count 342 MPV 9.6 Neut % (Auto) 88.2 Lymph % (Auto) 3.5 [place] % (Auto) 5.6 Eos % (Auto) 1.5 Baso % (Auto) 0.2 Reticulocyte % (Auto) Neut # (Auto) 16.53 H Lymph # (Auto) 0.7 L [place] # (Auto) 1.0 H Eos # (Auto) 0.3 Baso # (Auto) 0.0 Nucleated RBC % (auto) 0 Nucleated RBCs # 0.0 ESR Haptoglobin Sodium 117 L* Potassium Chloride Carbon Dioxide Anion Gap BUN Creatinine GFR Calculation Glucose POC Glucose Calculated Osmolality Lactic Acid Lactic Acid (Sepsis) Calcium Phosphorus Magnesium Ferritin Total Bilirubin AST ALT Alkaline Phosphatase Lactate Dehydrogenase Creatine Kinase 20 L C-Reactive Protein Total Protein Albumin Globulin Lipase Vitamin B12 Folate Procalcitonin TSH Free T4 0.83 Free T3 1.4 L Urine Color Urine Appearance Urine pH Ur Specific [place] Urine Protein Urine Glucose (UA) Urine Ketones Urine Blood Urine Nitrate Urine Bilirubin Urine Urobilinogen Ur Leukocyte Esterase Ur Eosinophil Smear Urine Eosinophils Urine Osmolality Ur Random Sodium Ur Random Potassium Ur Random Chloride Coronavirus 229E (PCR) Influenza Type A Ag Influenza Type B Ag SARS-CoV-2 (PCR) Blood Type Rho(D) Type Antibody Screen Crossmatch 12/14/21 12/14/21 12/14/21 20:15 20:15 20:15 WBC RBC Hgb Hct MCV MCH MCHC RDW Plt Count MPV Neut % (Auto) Lymph % (Auto) [place] % (Auto) Eos % (Auto) Baso % (Auto) Reticulocyte % (Auto) Neut # (Auto) Lymph # (Auto) [place] # (Auto) Eos # (Auto) Baso # (Auto) Nucleated RBC % (auto) Nucleated RBCs # ESR Haptoglobin Sodium Potassium Chloride Carbon Dioxide Anion Gap BUN Creatinine GFR Calculation Glucose POC Glucose Calculated Osmolality Lactic Acid Lactic Acid (Sepsis) Calcium Phosphorus Magnesium Ferritin Total Bilirubin AST ALT Alkaline Phosphatase Lactate Dehydrogenase Creatine Kinase C-Reactive Protein Total Protein Albumin Globulin Lipase Vitamin B12 Folate Procalcitonin TSH Free T4 Free T3 Urine Color Urine Appearance Urine pH Ur Specific [place] Urine Protein Urine Glucose (UA) Urine Ketones Urine Blood Urine Nitrate Urine Bilirubin Urine Urobilinogen Ur Leukocyte Esterase Ur Eosinophil Smear 0 Urine Eosinophils No eosinophils seen Urine Osmolality Pending Ur Random Sodium 12 Ur Random Potassium 32 Ur Random Chloride 23 Coronavirus 229E (PCR) Influenza Type A Ag Influenza Type B Ag SARS-CoV-2 (PCR) Blood Type Rho(D) Type Antibody Screen Crossmatch 12/14/21 12/14/21 12/14/21 19:50 19:50 19:32 WBC RBC Hgb Hct MCV MCH MCHC RDW Plt Count MPV Neut % (Auto) Lymph % (Auto) [place] % (Auto) Eos % (Auto) Baso % (Auto) Reticulocyte % (Auto) Neut # (Auto) Lymph # (Auto) [place] # (Auto) Eos # (Auto) Baso # (Auto) Nucleated RBC % (auto) Nucleated RBCs # ESR Haptoglobin Sodium 116 L* Potassium 4.7 Chloride 86 L Carbon Dioxide 19 L Anion Gap 15.7 BUN 12 Creatinine 0.6 L GFR Calculation Not Reportable Glucose 107 POC Glucose Calculated Osmolality 242 L Lactic Acid Lactic Acid (Sepsis) Calcium 7.6 L Phosphorus Magnesium Ferritin Total Bilirubin AST ALT Alkaline Phosphatase Lactate Dehydrogenase Creatine Kinase C-Reactive Protein Total Protein Albumin Globulin Lipase Vitamin B12 Folate Procalcitonin TSH Free T4 Free T3 Urine Color Urine Appearance Urine pH Ur Specific [place] Urine Protein Urine Glucose (UA) Urine Ketones Urine Blood Urine Nitrate Urine Bilirubin Urine Urobilinogen Ur Leukocyte Esterase Ur Eosinophil Smear Urine Eosinophils Urine Osmolality Ur Random Sodium Ur Random Potassium Ur Random Chloride Coronavirus 229E (PCR) Not detected Influenza Type A Ag negative Influenza Type B Ag negative SARS-CoV-2 (PCR) Not detected Blood Type Rho(D) Type Antibody Screen Crossmatch 12/14/21 12/14/21 12/14/21 18:07 17:10 14:21 WBC RBC Hgb Hct MCV MCH MCHC RDW Plt Count MPV Neut % (Auto) Lymph % (Auto) [place] % (Auto) Eos % (Auto) Baso % (Auto) Reticulocyte % (Auto) Neut # (Auto) Lymph # (Auto) [place] # (Auto) Eos # (Auto) Baso # (Auto) Nucleated RBC % (auto) Nucleated RBCs # ESR Haptoglobin Sodium Potassium Chloride Carbon Dioxide Anion Gap BUN Creatinine GFR Calculation Glucose POC Glucose 116 H Calculated Osmolality Lactic Acid Lactic Acid (Sepsis) 2.4 H Calcium Phosphorus Magnesium Ferritin Total Bilirubin AST ALT Alkaline Phosphatase Lactate Dehydrogenase Creatine Kinase C-Reactive Protein Total Protein Albumin Globulin Lipase Vitamin B12 Folate Procalcitonin TSH Free T4 Free T3 Urine Color Yellow Urine Appearance Clear Urine pH 5 Ur Specific [place] 1.015 Urine Protein Neg Urine Glucose (UA) Norm Urine Ketones Negative Urine Blood Neg Urine Nitrate Negative Urine Bilirubin Neg Urine Urobilinogen 1 H Ur Leukocyte Esterase Negative Ur Eosinophil Smear Urine Eosinophils Urine Osmolality Ur Random Sodium Ur Random Potassium Ur Random Chloride Coronavirus 229E (PCR) Influenza Type A Ag Influenza Type B Ag SARS-CoV-2 (PCR) Blood Type Rho(D) Type Antibody Screen Crossmatch 12/14/21 12/14/21 12/14/21 14:14 14:14 14:14 WBC RBC Hgb Hct MCV MCH MCHC RDW Plt Count MPV Neut % (Auto) Lymph % (Auto) [place] % (Auto) Eos % (Auto) Baso % (Auto) Reticulocyte % (Auto) Neut # (Auto) Lymph # (Auto) [place] # (Auto) Eos # (Auto) Baso # (Auto) Nucleated RBC % (auto) Nucleated RBCs # ESR Haptoglobin Sodium Cancelled Potassium Chloride Carbon Dioxide Anion Gap BUN Creatinine GFR Calculation Glucose POC Glucose Calculated Osmolality Lactic Acid Lactic Acid (Sepsis) Calcium Phosphorus Magnesium Ferritin Total Bilirubin AST ALT Alkaline Phosphatase Lactate Dehydrogenase Creatine Kinase Cancelled C-Reactive Protein Total Protein Albumin Globulin Lipase 44 Vitamin B12 Folate Procalcitonin TSH Free T4 Cancelled Free T3 Cancelled Urine Color Urine Appearance Urine pH Ur Specific [place] Urine Protein Urine Glucose (UA) Urine Ketones Urine Blood Urine Nitrate Urine Bilirubin Urine Urobilinogen Ur Leukocyte Esterase Ur Eosinophil Smear Urine Eosinophils Urine Osmolality Ur Random Sodium Ur Random Potassium Ur Random Chloride Coronavirus 229E (PCR) Influenza Type A Ag Influenza Type B Ag SARS-CoV-2 (PCR) Blood Type A Negative Rho(D) Type Negative Antibody Screen Negative Crossmatch See Detail 12/14/21 12/14/21 12/14/21 14:14 14:14 14:14 WBC RBC Hgb Hct MCV MCH MCHC RDW Plt Count MPV Neut % (Auto) Lymph % (Auto) [place] % (Auto) Eos % (Auto) Baso % (Auto) Reticulocyte % (Auto) Neut # (Auto) Lymph # (Auto) [place] # (Auto) Eos # (Auto) Baso # (Auto) Nucleated RBC % (auto) Nucleated RBCs # ESR 34 H Haptoglobin 369.0 H Sodium 117 L* Potassium Chloride Carbon Dioxide Anion Gap BUN Creatinine GFR Calculation Glucose POC Glucose Calculated Osmolality Lactic Acid Lactic Acid (Sepsis) Calcium Phosphorus Magnesium Ferritin 1183 H Total Bilirubin AST ALT Alkaline Phosphatase Lactate Dehydrogenase 264 H Creatine Kinase C-Reactive Protein 103.9 H Total Protein Albumin Globulin Lipase Vitamin B12 > 2000 H Folate 8.5 Procalcitonin 0.37 TSH 8.30 H Free T4 Free T3 Urine Color Urine Appearance Urine pH Ur Specific [place] Urine Protein Urine Glucose (UA) Urine Ketones Urine Blood Urine Nitrate Urine Bilirubin Urine Urobilinogen Ur Leukocyte Esterase Ur Eosinophil Smear Urine Eosinophils Urine Osmolality Ur Random Sodium Ur Random Potassium Ur Random Chloride Coronavirus 229E (PCR) Influenza Type A Ag Influenza Type B Ag SARS-CoV-2 (PCR) Blood Type Rho(D) Type Antibody Screen Crossmatch 12/14/21 12/14/21 12/14/21 14:14 14:14 14:14 WBC RBC Hgb Hct MCV MCH MCHC RDW Plt Count MPV Neut % (Auto) Lymph % (Auto) [place] % (Auto) Eos % (Auto) Baso % (Auto) Reticulocyte % (Auto) 2.2 H Neut # (Auto) Lymph # (Auto) [place] # (Auto) Eos # (Auto) Baso # (Auto) Nucleated RBC % (auto) Nucleated RBCs # ESR Haptoglobin Sodium 115 L* Potassium 5.5 H Chloride 84 L Carbon Dioxide 20 L Anion Gap 16.5 BUN 12 Creatinine 0.6 L GFR Calculation Not Reportable Glucose 141 H POC Glucose Calculated Osmolality 242 L Lactic Acid 3.5 H Lactic Acid (Sepsis) Calcium 7.8 L Phosphorus Magnesium Ferritin Total Bilirubin 0.7 AST 35 ALT 36 Alkaline Phosphatase 618 H Lactate Dehydrogenase Creatine Kinase C-Reactive Protein Total Protein 6.0 L Albumin 2.0 L Globulin 4.0 Lipase Vitamin B12 Folate Procalcitonin TSH Free T4 Free T3 Urine Color Urine Appearance Urine pH Ur Specific [place] Urine Protein Urine Glucose (UA) Urine Ketones Urine Blood Urine Nitrate Urine Bilirubin Urine Urobilinogen Ur Leukocyte Esterase Ur Eosinophil Smear Urine Eosinophils Urine Osmolality Ur Random Sodium Ur Random Potassium Ur Random Chloride Coronavirus 229E (PCR) Influenza Type A Ag Influenza Type B Ag SARS-CoV-2 (PCR) Blood Type Rho(D) Type Antibody Screen Crossmatch 12/14/21 14:14 WBC 24.2 H RBC 3.16 L Hgb 8.2 L Hct 25.3 L MCV 80.1 MCH 25.9 L MCHC 32.4 RDW 17.4 H Plt Count 401 H MPV 9.8 Neut % (Auto) 90.0 Lymph % (Auto) 2.7 [place] % (Auto) 4.9 Eos % (Auto) 0.8 Baso % (Auto) 0.3 Reticulocyte % (Auto) Neut # (Auto) 21.78 H Lymph # (Auto) 0.7 L [place] # (Auto) 1.2 H Eos # (Auto) 0.2 Baso # (Auto) 0.1 Nucleated RBC % (auto) 0 Nucleated RBCs # 0.0 ESR Haptoglobin Sodium Potassium Chloride Carbon Dioxide Anion Gap BUN Creatinine GFR Calculation Glucose POC Glucose Calculated Osmolality Lactic Acid Lactic Acid (Sepsis) Calcium Phosphorus Magnesium Ferritin Total Bilirubin AST ALT Alkaline Phosphatase Lactate Dehydrogenase Creatine Kinase C-Reactive Protein Total Protein Albumin Globulin Lipase Vitamin B12 Folate Procalcitonin TSH Free T4 Free T3 Urine Color Urine Appearance Urine pH Ur Specific [place] Urine Protein Urine Glucose (UA) Urine Ketones Urine Blood Urine Nitrate Urine Bilirubin Urine Urobilinogen Ur Leukocyte Esterase Ur Eosinophil Smear Urine Eosinophils Urine Osmolality Ur Random Sodium Ur Random Potassium Ur Random Chloride Coronavirus 229E (PCR) Influenza Type A Ag Influenza Type B Ag SARS-CoV-2 (PCR) Blood Type Rho(D) Type Antibody Screen Crossmatch Completed Studies During Hospitalization Category Date Time Status CT abdomen pelvis [CT angio chest w abd pel w con] Stat Cat Scan 12/14/21 17:09 Completed XR chest 1V portable [id number] Stat Exams 12/14/21 14:44 Completed Laboratory Last Values WBC 18.1 10^3/uL (4.0-10.0) H 12/15/21 00:24 RBC 2.86 10^6/uL (4.1-5.3) L 12/15/21 00:24 Hgb 7.3 g/dL (11.7-16.6) L 12/15/21 00:24 Hct 23.0 % (42.0-52.0) L 12/15/21 00:24 MCV 80.4 fl (80-94) 12/15/21 00:24 MCH 25.5 pg (28.0-34.0) L 12/15/21 00:24 MCHC 31.7 g/dL (30.0-36.0) 12/15/21 00:24 RDW 17.5 % (12.1-15.1) H 12/15/21 00:24 Plt Count 321 10^3/cmm (130-400) 12/15/21 00:24 MPV 9.6 fL (7.4-10.4) 12/15/21 00:24 Neut % (Auto) 85.4 % 12/15/21 00:24 Lymph % (Auto) 4.3 % 12/15/21 00:24 [place] % (Auto) 5.9 % 12/15/21 00:24 Eos % (Auto) 3.4 % 12/15/21 00:24 Baso % (Auto) 0.2 % 12/15/21 00:24 Reticulocyte % (Auto) 2.2 % (0.5-2.0) H 12/14/21 14:14 Neut # (Auto) 15.40 10^3/uL (1.8-7.7) H 12/15/21 00:24 Lymph # (Auto) 0.8 10^3/uL (0.8-4.8) 12/15/21 00:24 [place] # (Auto) 1.1 10^3/uL (0.2-0.9) H 12/15/21 00:24 Eos # (Auto) 0.6 10^3/uL (0.0-0.8) 12/15/21 00:24 Baso # (Auto) 0.0 10^3/uL (0.0-0.1) 12/15/21 00:24 Nucleated RBC % (auto) 0 % 12/15/21 00:24 Nucleated RBCs # 0.0 /100WBC 12/15/21 00:24 ESR 34 mm/hr (0-10) H 12/14/21 14:14 Haptoglobin 369.0 mg/L (30-200) H 12/14/21 14:14 Sodium 118 mmol/L (136-145) L* 12/15/21 07:09 Potassium 4.6 mmol/L (3.5-5.1) 12/15/21 03:40 Chloride 88 mmol/L (98-107) L 12/15/21 03:40 Carbon Dioxide 21 mmol/L (22-29) L 12/15/21 03:40 Anion Gap 13.6 (5-19) 12/15/21 03:40 BUN 11 mg/dL (8-23) 12/15/21 03:40 Creatinine 0.6 mg/dL (0.7-1.2) L 12/15/21 03:40 GFR Calculation Not Reportable 12/15/21 03:40 Glucose 98 mg/dL (65-115) 12/15/21 03:40 POC Glucose 105 mg/dL (70-110) 12/15/21 07:11 Calculated Osmolality 245 mOsm/kg (285-295) L 12/15/21 03:40 Lactic Acid 3.5 mmol/L (0.5-2.2) H 12/14/21 14:14 Lactic Acid (Sepsis) 2.4 mmol/L (0.5-2.2) H 12/14/21 17:10 Calcium 7.5 mg/dL (8.5-10.5) L 12/15/21 03:40 Phosphorus 3.8 mg/dL (2.5-4.5) 12/15/21 03:40 Magnesium 2.0 mg/dL (1.7-2.3) 12/15/21 03:40 Ferritin 1183 ng/mL (30-400) H 12/14/21 14:14 Total Bilirubin 0.7 mg/dL (0.15-1.2) 12/15/21 03:40 AST 28 U/L (0-40) 12/15/21 03:40 ALT 31 U/L (0-41) 12/15/21 03:40 Alkaline Phosphatase 514 U/L (40-130) H 12/15/21 03:40 Lactate Dehydrogenase 264 U/L (135-225) H 12/14/21 14:14 Creatine Kinase 20 U/L (39-308) L 12/14/21 21:53 C-Reactive Protein 103.9 mg/L (0.0-4.9) H 12/14/21 14:14 Total Protein 5.5 g/dL (6.6-8.7) L 12/15/21 03:40 Albumin 1.8 g/dL (3.5-5.2) L 12/15/21 03:40 Globulin 3.7 g/dL (1.3-4.6) 12/15/21 03:40 Lipase 44 U/L (13-60) 12/14/21 14:14 Vitamin B12 > 2000 pg/mL (232-1245) H 12/14/21 14:14 Folate 8.5 ng/mL (4.5-32.2) 12/14/21 14:14 Procalcitonin 0.37 ng/mL (0-0.5) 12/14/21 14:14 TSH 8.30 uIU/mL (0.27-4.20) H 12/14/21 14:14 Free T4 0.83 ng/dL (0.82-1.77) 12/14/21 21:53 Free T3 1.4 PG/ML (2.0-4.4) L 12/14/21 21:53 Urine Color Yellow (Yellow) 12/14/21 14:21 Urine Appearance Clear (CLEAR) 12/14/21 14:21 Urine pH 5 (5-7) 12/14/21 14:21 Ur Specific [place] 1.015 (1.005-1.030) 12/14/21 14:21 Urine Protein Neg (Negative) 12/14/21 14:21 Urine Glucose (UA) Norm (Normal) 12/14/21 14:21 Urine Ketones Negative (Negative) 12/14/21 14:21 Urine Blood Neg (Negative) 12/14/21 14:21 Urine Nitrate Negative (Negative) 12/14/21 14:21 Urine Bilirubin Neg (Negative) 12/14/21 14:21 Urine Urobilinogen 1 mg/dL (Negative) H 12/14/21 14:21 Ur Leukocyte Esterase Negative (Negative) 12/14/21 14:21 Ur Eosinophil Smear 0 (0-0) 12/14/21 20:15 Urine Eosinophils No eosinophils seen 12/14/21 20:15 Ur Random Sodium 12 mmol/L 12/14/21 20:15 Ur Random Potassium 32 mmol/L 12/14/21 20:15 Ur Random Chloride 23 mmol/L 12/14/21 20:15 Coronavirus 229E (PCR) Not detected (NOT DETECT) 12/14/21 19:50 Influenza Type A Ag negative (Negative) 12/14/21 19:50 Influenza Type B Ag negative (Negative) 12/14/21 19:50 SARS-CoV-2 (PCR) Not detected (NOT DETECT) 12/14/21 19:50 Blood Type A Negative 12/14/21 14:14 Rho(D) Type Negative 12/14/21 14:14 Antibody Screen Negative 12/14/21 14:14 Crossmatch See Detail 12/14/21 14:14 Radiology Impressions Chest X-Ray 12/14/21 14:44 IMPRESSION: No acute findings. Chest/Abdomen/Pelvis CT 12/14/21 17:09 IMPRESSION: 1. Negative for pulmonary embolus. 2. Cardiomegaly. 3. Coronary artery atherosclerotic calcifications. IMPRESSION: 1. 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 Additionally some air in fluid soft tissue density is seen within the mass suggesting communication with the duodenum or necrosis. The mass also contacts the superior mesenteric artery. 2. 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 Bilateral renal cysts. 4. Diverticulosis without diverticulitis. 5. Nodular enlargement of the prostate gland. 6. Multifocal low-density lesions measuring 4.2 cm concerning for metastatic disease. 7. Cholelithiasis with mild gallbladder wall thickening, consider further evaluation with ultrasound. 8. Small hiatal hernia. 9. Small amount of ascites in the upper abdomen. 10. Perinephric edema bilaterally likely related to chronic renal insufficiency. COMMENTS: Consistent with the [employer]'s Incidental Findings Committee white paper (J Am Antonio Radiol 2018): Any incidental renal lesion less than 1 cm or classified as too small to characterize, or any incidental cystic renal lesion characterized as simple-appearing, is likely benign. No follow-up imaging is recommended for these lesions per consensus recommendations based on imaging criteria. Recent Clincial Data Last Vital Signs Temp 98.7 F 12/15/21 09:39 Pulse 95 12/15/21 09:56 Resp 20 H 12/15/21 09:56 BP 130/66 12/15/21 09:56 Pulse Ox 94 12/15/21 09:56 O2 Del Method 12/15/21 08:00 Vital Signs Temp Pulse Resp BP Pulse Ox O2 Del Method 12/15/21 09:56 95 20 H 130/66 94 12/15/21 09:39 98.7 F 97 16 130/66 96 12/15/21 08:00 93 18 115/50 97 Room Air 12/15/21 07:30 89 26 H 115/50 96 Room Air 12/15/21 07:00 82 18 115/50 96 Room Air 12/15/21 06:30 83 17 115/50 93 Room Air 12/15/21 05:49 86 12/15/21 05:27 97.7 F 12/15/21 04:42 97.7 F 12/15/21 04:00 98 F Room Air 12/15/21 01:34 97.7 F 12/15/21 01:00 97.9 F Intake & Output/Weight 12/13/21 12/14/21 12/15/21 12/16/21 06:59 06:59 06:59 06:59 Intake Total 200 / 200 320 / 320 Output Total 600 / 600 300 / 300 Balance -400 / -400 Weight 85.871 kg Vitals Last Vital Signs Temp 98.7 F 12/15/21 09:39 Pulse 95 12/15/21 09:56 Resp 20 H 12/15/21 09:56 BP 130/66 12/15/21 09:56 Pulse Ox 94 12/15/21 09:56 O2 Del Method 12/15/21 08:00 TS Medications Medications Discontinued Medications Acetaminophen (Acetaminophen 325 Mg Tablet) 650 mg PO Q6H PRN PRN Reason: Mild/Mod Pain Or Temp >/= 101 Dextrose (Dextrose 50% Syringe 50 Ml) 25 ml IVP ONCE PRN; Protocol PRN Reason: hypoglycemia protocol Dextrose (Dextrose 50% Syringe 50 Ml) 50 ml IVP PRN PRN; Protocol PRN Reason: hypoglycemia protocol Glucagon (Glucagon 1 Mg/Ml Inj 1 Ml) 1 mg IM ONCE PRN; Protocol PRN Reason: Adult Acute Hypoglycemia Prot. Sodium Chloride (Sodium Chloride 3%) 500 mls @ 15 mls/hr IV .Q24H NIKOLAY Stop: 12/14/21 21:59 Dextrose (D5w) 500 mls @ 100 mls/hr IV ONCE PRN; Protocol PRN Reason: Adult Acute Hypoglycemia Prot Sodium Chloride (Sodium Chloride 3%) 30 mls @ 15 mls/hr IV .Q2H NIKOLAY Last Infusion: 12/15/21 07:36 Dose: Infused Sodium Chloride (Sodium Chloride 3%) 50 mls @ 50 mls/hr IV .Q1H ONE Stop: 12/15/21 07:59 Last Infusion: 12/15/21 09:04 Dose: Infused Piperacillin Sod/Tazobactam (Sod 3.375 gm/ Sodium Chloride) 50 mls @ 12.5 mls/hr IV Q8H NIKOLAY; Protocol Last Admin: 12/15/21 09:04 Dose: 12.5 mls/hr Albumin Human (Albumin) 25 gm in 100 mls @ 60 mls/hr IV ONCE ONE Stop: 12/15/21 09:44 Last Admin: 12/15/21 08:39 Dose: 60 mls/hr Sodium Chloride (Sodium Chloride 0.9% (100 Ml)) Confirm Administered Dose 100 mls @ as directed .ROUTE .STK-MED ONE Stop: 12/15/21 09:27 Last Admin: 12/15/21 09:51 Dose: 1 mls/hr Insulin Human Lispro (Insulin Lispro 100 Unit/1 Ml) 0 unit SUBCUT TIDWM NIKOLAY; Protocol Last Admin: 12/15/21 07:19 Dose: Not Given Iohexol (Iohexol 350 Mg/Ml 100 Ml Btl) 0 ml IV ONCE ONE Stop: 12/14/21 17:59 Last Admin: 12/14/21 17:59 Dose: 95 ml Levothyroxine Sodium (Levothyroxine 25 Mcg Tablet) 25 mcg PO Q24H NIKOLAY Last Admin: 12/15/21 08:39 Dose: 25 mcg Ondansetron HCl (Ondansetron 2 Mg/Ml Sdv 2 Ml) 4 mg IVP Q8H PRN PRN Reason: vomiting, or N/V if npo Ondansetron HCl (Ondansetron 2 Mg/Ml Sdv 2 Ml) 4 mg IVP Q6H PRN PRN Reason: NAUSEA AND VOMITING Pantoprazole Sodium (Pantoprazole 40 Mg Sdv) 40 mg IVP Q12H NIKOLAY Last Admin: 12/15/21 05:55 Dose: 40 mg Sucralfate (Sucralfate 1 Gm Tablet) 1 gm PO AC&BEDTIME NIKOLAY Last Admin: 12/15/21 05:55 Dose: 1 gm Allergies No Known Allergies Allergy (Verified 12/14/21 13:57) Home Medications multivitamin 1 tab PO DAILY 07/08/19 [History Confirmed 12/14/21] amlodipine 5 mg tablet (Norvasc) 5 mg PO DAILY #90 tabs 06/23/21 [Rx Confirmed 12/14/21] metoprolol tartrate 100 mg tablet 100 mg PO DAILY #90 tabs 06/23/21 [Rx Confirmed 12/14/21] L.acidophil-L.casei-B.bifid-B.longum-FOS 2 billion cell-50 mg capsule (Probiotic Blend) 1 cap PO DAILY 11/22/21 [History Confirmed 12/14/21] furosemide 20 mg tablet (Lasix) 20 mg PO QAM 11/22/21 [History Confirmed 12/14/21] furosemide 40 mg tablet 40 mg PO QAM 11/22/21 [History Confirmed 12/14/21] lisinopril 20 mg tablet 20 mg PO DAILY 11/22/21 [History Confirmed 12/14/21] pantoprazole 40 mg tablet,delayed release See Rx Instructions .Route .COMPLEX #126 tabs 11/22/21 [Rx Confirmed 12/14/21] potassium chloride 20 mEq tablet,extended release 20 meq PO QAM 11/22/21 [History Confirmed 12/14/21] sucralfate 1 gram tablet 1 g PO BID 4 weeks #56 tabs 11/22/21 [Rx Confirmed 12/14/21] ciprofloxacin HCl 500 mg tablet 500 mg PO BID #14 tabs 12/11/21 [Rx Confirmed 12/14/21] atorvastatin 40 mg tablet 40 mg PO DAILY #90 tabs 12/13/21 [Rx Confirmed 12/14/21] ferrous sulfate 142 mg (45 mg iron) tablet,extended release (Slow Fe) 142 mg PO DAILY 12/14/21 [History Confirmed 12/14/21] simethicone 125 mg capsule (Gas-X Extra Strength) 125 mg PO DAILY PRN Gastrointestinal Spasms Or Cramping 12/14/21 [History Confirmed 12/14/21] Discharge Plan Discharge Patient Disposition: Xfer Other Condition: Stable Prescriptions: No Action multivitamin Tablet 1 tab PO DAILY amlodipine [Norvasc] 5 mg tablet 5 mg PO DAILY Qty: 90 1RF metoprolol tartrate 100 mg tablet 100 mg PO DAILY Qty: 90 1RF ciprofloxacin HCl 500 mg tablet 500 mg PO BID Qty: 14 0RF atorvastatin 40 mg tablet 40 mg PO DAILY Qty: 90 1RF Probiotic Blend 2 billion cell-50 mg Capsule 1 cap PO DAILY Rx Instructions: give with meal/snack furosemide 40 mg tablet 40 mg PO QAM lisinopril 20 mg tablet 20 mg PO DAILY furosemide [Lasix] 20 mg tablet 20 mg PO QAM Rx Instructions: Take with 40mg lasix in am. potassium chloride 20 mEq tablet extended release 20 meq PO QAM pantoprazole 40 mg tablet,delayed release (DR/EC) See Rx Instructions .ROUTE .COMPLEX Qty: 126 0RF Rx Instructions: BID for 6 weeks, then Daily for 6 weeks sucralfate 1 gram tablet 1 g PO BID 28 Days Qty: 56 0RF Gas-X Extra Strength 125 mg Capsule 125 mg PO DAILY PRN (Reason: Gastrointestinal Spasms Or Cramping) Slow Fe 142 mg (45 mg iron) Tablet Extended Release 142 mg PO DAILY Discharge Orders: Transfer Out of Facility (Order); Ordered 12/15/21 Ordered By: Juan Antonio Strong Referrals: Yelena Lopez MD [Primary Care Provider] - Transfer Attestations Time Spent in Transfer Care: critical care time Critical Care Time (min): 55 Quality Metrics Clinical Quality Measures [ No reported AMI, CVA or VTE this stay] Coding Level of Care Code Acute Manager Instrumentation for Chg Fwd Diagnoses Hyponatremia E87.1
[2021-12-18 15:34] LABS: Osmolality Urine 370 mOsm/kg (50-1200)
== END 2021-12-15 11:38 | disposition short-term general hospital (02) | DRG 643 ==
LOC: ER 16:09 → ICU 18:07
PROVIDERS: Internal Medicine; Admitting Provider Family Medicine; Emergency Provider Family Medicine; PCP Family Medicine; Visit Provider Family Medicine
DX: E22.2 Syndrome of inappropriate secretion of antidiuretic hormone (principal); I81 Portal vein thrombosis; G93.40 Encephalopathy, unspecified; E87.20 Acidosis, unspecified; E78.2 Mixed hyperlipidemia; I10 Essential (primary) hypertension; E86.0 Dehydration; K57.90 Diverticulosis of intestine, part unspecified, without perforation or abscess without bleeding; K29.70 Gastritis, unspecified, without bleeding; E11.9 Type 2 diabetes mellitus without complications; D64.9 Anemia, unspecified; E87.5 Hyperkalemia; K86.9 Disease of pancreas, unspecified
CPT/HCPCS: 36415; 36416; 36430; 71045; 71275; 74177; 80048; 80053; 80061; 80503; 81003; 82436; 82550; 82607; 82728; 82746; 82962; 83010; 83036; 83605; 83615; 83690; 83735; 83935; 84100; 84133; 84145; 84295; 84300; 84439; 84443; 84481; 85025; 85045; 85651; 85999; 86140; 86850; 86900; 86920; 87040; 87086; 87493; 87506; 87635; 87641; 87804; 94664; 96360; 99285; C9113; J2543; J7030; J7131; P9016; P9040; P9047; Q3014; Q9967